=== PATIENT | male | born 1945 | race Caucasian/White ===

== ENCOUNTER 2023-05-30 11:13 | Emergency (ER) | payer MEDICARE, OTHER, SELFPAY ==
[2023-05-30] VITALS (9 sets, daily range): BP systolic 102–152; BP diastolic 51–71; PULSE 56–65; RESP 12–30; TEMP 36.6; O2SAT 97–100; BMI 21.2
--- NOTE | 2023-05-30 11:28 | DI.RAD.S_ITS ---
PROCEDURE: XR CHEST 1V INDICATIONS: chest pain TECHNIQUE: One view of the chest was acquired. COMPARISON: None. FINDINGS: Surgical changes and devices: None. Lungs and pleura: No consolidation or pleural effusion. Mediastinum: Aortic calcifications. Normal heart size. Bones and chest wall: Degenerative changes. IMPRESSION: Single view limited radiograph. No acute abnormality. Dictated by: Karsten Smith M.D. on 05/30/2023 at 12:22 Approved by: Karsten Smith M.D. on 05/30/2023 at 12:23
[2023-05-30 11:34] LABS: Add Manual Diff / Slide Review NO; Basophils Absolute Auto 100 /uL (0-100); Basophils Percent Auto 0.6 % (0-2); Eosinophils Absolute Auto 100 /uL (0-450); Eosinophils Percent Auto 0.8 % (2-4); Hematocrit 36.8 % (41-53); Lymphocytes Absolute Auto 1700 /uL (1100-4500); Lymphocytes Percent Auto 20.3 % (25-40); Mean Corpuscular HGB Conc 32.7 % (30-36); Mean Corpuscular Volume 91.6 fL (80-100); Monocytes Absolute Auto 500 /uL (0-900); Neutrophils Absolute Auto 5900 /uL (1500-7000); Neutrophils Percent Auto 72.3 % (50-75); Platelet Count 291 X10^3/uL (150-400); Red Blood Cell Count 4.01 X10^6/uL (4.5-5.9); Red Cell Distribution Width 15.2 % (11.6-14.8); White Blood Cell Count 8.1 X10^3/uL (4.5-11.0)
[2023-05-30 11:36] LABS: INR 0.9 (0.9-1.3); Prothrombin Time 10.8 SECONDS (9.4-12.5)
[2023-05-30 11:38] LABS: PTT Partial Thromboplastin Tim 30 SECONDS (25.1-36.5)
[2023-05-30 11:40] LABS: Alanine Aminotransferase 28 IU/L (<50); Albumin 3.8 g/dL (3.5-5.0); Albumin Globulin Ratio 1.4 (1.0-2.8); Alkaline Phosphatase 76 U/L (38-126); Aspartate Aminotransferase 26 IU/L (17-59); BUN Creatinine Ratio 24.6 (6-22); Bilirubin Total 0.5 mg/dL (0.2-1.3); Blood Urea Nitrogen 34 mg/dL (9-20); Calcium 9.7 mg/dL (8.4-10.2); Carbon Dioxide 25 mmol/L (22-32); Chloride 99 mmol/L (98-107); Creatine Kinase 53 U/L (55-170); Estimated Glomerular Filt Rate 53 mL/min (>60); Globulin 2.8 g/dL (1.7-4.1); Glucose 220 mg/dL (80-110); HEMOLYSIS < 15 (0-50); Lipase 78 U/L (23-300); Magnesium 2.1 mg/dL (1.6-2.3); Potassium 4.6 mmol/L (3.4-5.1); Sodium 133 mmol/L (137-145); Total Protein 6.6 g/dL (6.3-8.2)
[2023-05-30 11:52] LABS: Troponin I < 0.012 ng/mL (0.01-0.034)
--- NOTE | 2023-05-30 12:33 | ED.GENADULT ---
HPI - General Adult General Chief complaint: Syncope Stated complaint: syncope/fall baseline confused Time Seen by Provider: 05/30/23 11:28 Source: patient and EMS Mode of arrival: EMS History of Present Illness HPI narrative: Patient is a 78-year-old male. Does have some cognitive issues/dementia. Not on blood thinners. Was here for evaluation of a syncope/presyncopal episode. He was at his normal state of health. He was with his family. They were to wearing a local nursing facility when patient's daughter who was at bedside thinks that he got somewhat hot. He stated that he felt like he was going to pass out. He potentially had a short episode of loss of consciousness. He did not fall. His family did help him to the ground. No loss of bowel or bladder. Returned to baseline fairly quickly after the event. Patient is unable to provide much history as far as prodromal symptoms given his cognitive issues however here in the emergency department he states he has no particular symptoms. Related Data Allergies Allergy/AdvReac Type Severity Reaction Status Date / Time No Known Drug Allergies Allergy Verified 05/30/23 11:23 Review of Systems Review of Systems Narrative: See HPI however somewhat limited secondary to patient's dementia Patient History Social History Smoking Status: Never smoker Smoking Status: Never smoker alcohol intake frequency: 0-2 drinks per day Substance Use Type: does not use Exam Initial Vital Signs Initial Vital Signs: Vital Signs Temperature 98 F 05/30/23 11:10 Pulse Rate 65 05/30/23 11:10 Respiratory Rate 20 05/30/23 11:10 Blood Pressure 106/56 L 05/30/23 11:10 Pulse Oximetry 97 05/30/23 11:10 Oxygen Delivery Method Room Air 05/30/23 11:10 Const General: cooperative, comfortable and No ill appearing HENMT Head: normal to inspection and normocephalic Resp Effort & Inspection: normal respiratory effort Auscultation: clear to auscultation bilaterally Cardio Rate: regular rate Rhythm: regular rhythm Skin General: no rashes or lesions noted Neuro Other: Patient is confused. Does not know why he is here. Moves all 4 extremities. At baseline per daughter who is at bedside Extrem Other: No gross deformities Course Orders Ordered: ED Orders 05/30/23 11:16 Complete Blood Count AUTO DIFF Stat Comprehensive Metabolic Panel Stat Lipase Stat Magnesium Stat PTT Partial Thromboplastin Franky Stat Prothrombin Time INR Stat Troponin & CK Cardiac Panel Stat 05/30/23 11:27 EKG-12 Lead Stat 05/30/23 11:28 XR chest 1V Stat Vital Signs Vital signs: Vital Signs - 8 hr 05/30/23 11:10 05/30/23 11:27 05/30/23 11:30 Temperature 98 F Pulse Rate 65 61 Respiratory Rate 20 13 Blood Pressure 106/56 L 102/51 L Pulse Oximetry 97 100 Oxygen Delivery Method Room Air 05/30/23 11:30 05/30/23 12:00 05/30/23 12:00 Temperature Pulse Rate 60 57 L Respiratory Rate 12 14 Blood Pressure 102/57 L Pulse Oximetry 100 100 Oxygen Delivery Method Medical Decision Making Lab Data Lab results reviewed: Yes I reviewed the patient's lab results. 05/30/23 11:16 05/30/23 11:16 Labs: Lab Results 05/30/23 Range/Units 11:16 WBC 8.1 (4.5-11.0) X10^3/uL RBC 4.01 L (4.5-5.9) X10^6/uL Hgb 12.0 L (13.5-17.5) g/dL Hct 36.8 L (41-53) % MCV 91.6 (80-100) fL MCH 30.0 (26-34) PG MCHC 32.7 (30-36) % RDW 15.2 H (11.6-14.8) % Plt Count 291 (150-400) X10^3/uL Neut % (Auto) 72.3 (50-75) % Lymph % (Auto) 20.3 L (25-40) % [place] % (Auto) 6.0 (3-14) % Eos % (Auto) 0.8 L (2-4) % Baso % (Auto) 0.6 (0-2) % Neut # (Auto) 5900 (5358-3299) /uL Lymph # (Auto) 1700 (5183-4151) /uL [place] # (Auto) 500 (0-900) /uL Eos # (Auto) 100 (0-450) /uL Baso # (Auto) 100 (0-100) /uL PT 10.8 (9.4-12.5) SECONDS INR 0.9 (0.9-1.3) APTT 30 (25.1-36.5) SECONDS Sodium 133 L (137-145) mmol/L Potassium 4.6 (3.4-5.1) mmol/L Chloride 99 (98-107) mmol/L Carbon Dioxide 25 (22-32) mmol/L BUN 34 H (9-20) mg/dL Creatinine 1.38 H (0.66-1.25) mg/dL Estimated GFR 53 L (>60) mL/min BUN/Creatinine Ratio 24.6 H (6-22) Glucose 220 H (80-110) mg/dL Calcium 9.7 (8.4-10.2) mg/dL Magnesium 2.1 (1.6-2.3) mg/dL Total Bilirubin 0.5 (0.2-1.3) mg/dL AST 26 (17-59) IU/L ALT 28 (<50) IU/L Alkaline Phosphatase 76 (38-126) U/L Total Creatine Kinase 53 L (55-170) U/L Troponin I < 0.012 (0.01-0.034) ng/mL Total Protein 6.6 (6.3-8.2) g/dL Albumin 3.8 (3.5-5.0) g/dL Globulin 2.8 (1.7-4.1) g/dL Albumin/Globulin Ratio 1.4 (1.0-2.8) Lipase 78 (23-300) U/L Point of Care Testing Glucose POC 217 Point of care testing: Point of Care Testing Glucose POC 217 Imaging Data Chest x-ray: Radiologist's Impression: PROCEDURE: XR CHEST 1V INDICATIONS: chest pain TECHNIQUE: One view of the chest was acquired. COMPARISON: None. FINDINGS: Surgical changes and devices: None. Lungs and pleura: No consolidation or pleural effusion. Mediastinum: Aortic calcifications. Normal heart size. Bones and chest wall: Degenerative changes. IMPRESSION: Single view limited radiograph. No acute abnormality. ECG Data Attestation: I personally reviewed and interpreted this ECG as follows: Interpretation: Sinus rhythm Ventricular rate is 62 Left axis deviation Normal QRS No ST T wave changes MDM Narrative Medical decision making narrative: Labs are unremarkable. Patient ambulated around the emergency department without lightheadedness. He has no specific complaints. Chest x-ray is unremarkable. EKG is unremarkable. Will discharge patient home. No indication to change any medications. No indication for admission to the hospital. They were given return precautions. Daughter expressed understanding and agreement. Discharge Plan Departure Patient Disposition: Home Clinical Impression: Syncope Instructions: DI for Syncope in Adults (Fainting) Activity Restrictions/Additional Instructions: Recommend that Karsten continue to take all of his medications as directed. It is important that he establish care with a primary doctor here in the local area. If you need help with this you can contact [phone]. Return to emergency department for new or worsening symptoms. Referrals: Paul Walker DO [Primary Care Provider] - Stand Alone Forms: Patient Portal/API
== END 2023-05-30 13:29 | disposition home or self-care (01) ==
PROVIDERS: Emergency Provider Emergency Medicine; PCP Family Medicine
DX: R55 Syncope and collapse (principal); R07.9 Chest pain, unspecified; R41.0 Disorientation, unspecified
CPT/HCPCS: 36415; 71045; 80053; 81003; 82550; 83690; 83735; 84484; 85025; 85610; 85730; 93005; 99283; 99284

== ENCOUNTER → 2023-06-11 14:00 | Outpatient (CLI) | payer MEDICARE, OTHER, SELFPAY | PROVIDERS: PCP Family Medicine; Referring Provider Family Medicine; Visit Provider Surgery | DX: E11.621 Type 2 diabetes mellitus with foot ulcer (principal); L97.519 Non-pressure chronic ulcer of other part of right foot with unspecified severity; L97.529 Non-pressure chronic ulcer of other part of left foot with unspecified severity; D64.9 Anemia, unspecified; L97.512 Non-pressure chronic ulcer of other part of right foot with fat layer exposed; L97.522 Non-pressure chronic ulcer of other part of left foot with fat layer exposed; E11.42 Type 2 diabetes mellitus with diabetic polyneuropathy; L84 Corns and callosities; R60.0 Localized edema; L53.9 Erythematous condition, unspecified; I10 Essential (primary) hypertension; F03.90 Unspecified dementia, unspecified severity, without behavioral disturbance, psychotic disturbance, mood disturbance, and anxiety | CPT/HCPCS: 11042; 73630; 80053; 82607; 83036; 83540; 83550; 87070; 87075; 87077; 87186; 87205; 99203; 99214 ==

== ENCOUNTER → 2023-06-11 16:38 | Outpatient (CLI) | payer MEDICARE, OTHER, SELFPAY ==
--- NOTE | 2023-06-11 16:40 | DI.RAD.S_ITS ---
PROCEDURE: XR FOOT LT MIN 3V INDICATIONS: non-healing ulcer on left third toe TECHNIQUE: 3 views of the foot were acquired. COMPARISON: None. FINDINGS: Bones: No fractures or dislocations. No suspicious bony lesions. Scattered IP degenerative narrowing. Old 2nd metatarsal fracture. Calcaneal spur is present. Midfoot degenerative change. Soft tissues: No tibiotalar joint effusion. Achilles tendon appears normal. IMPRESSION: No visualized erosions. Dictated by: Laurence Moya M.D. on 06/12/2023 at 13:57 Approved by: Laurence Moya M.D. on 06/12/2023 at 13:58
--- NOTE | 2023-06-11 16:40 | DI.RAD.S_ITS ---
PROCEDURE: XR FOOT RT MIN 3V INDICATIONS: non-healing ulcer on right great toe TECHNIQUE: 3 views of the foot were acquired. COMPARISON: None. FINDINGS: Bones: No fractures or dislocations. No suspicious bony lesions. IP degenerative narrowing. No distinct erosions. Soft tissues: No tibiotalar joint effusion. Achilles tendon appears normal. Soft tissue ulcer is noted underlying the 1st digit. IMPRESSION: 1st digit soft tissue ulcer without definitive erosive change. Dictated by: Laurence Moya M.D. on 06/12/2023 at 13:58 Approved by: Laurence Moya M.D. on 06/12/2023 at 14:00
[2023-06-11 18:26] LABS: HEMOLYSIS < 15 (0-50); Iron 21 ug/dL (49-181)
[2023-06-11 18:35] LABS: Alanine Aminotransferase 301 IU/L (<50); Albumin 3.3 g/dL (3.5-5.0); Albumin Globulin Ratio 1.1 (1.0-2.8); Alkaline Phosphatase 208 U/L (38-126); Aspartate Aminotransferase 99 IU/L (17-59); BUN Creatinine Ratio 31.3 (6-22); Bilirubin Total 0.8 mg/dL (0.2-1.3); Blood Urea Nitrogen 31 mg/dL (9-20); Calcium 9.2 mg/dL (8.4-10.2); Carbon Dioxide 25 mmol/L (22-32); Chloride 95 mmol/L (98-107); Estimated Glomerular Filt Rate > 60 mL/min (>60); Glucose 196 mg/dL (80-110); HEMOLYSIS < 15 (0-50); Sodium 129 mmol/L (137-145); Total Protein 6.3 g/dL (6.3-8.2)
[2023-06-11 18:38] LABS: Percent Iron Saturation 8 % (20-50); Total Iron Binding Capacity 265 ug/dL (261-462); Transferrin 216 mg/dL (206-381)
[2023-06-11 19:23] LABS: Vitamin B12 756 pg/mL (239-931)
== END ==
PROVIDERS: PCP Family Medicine; Referring Provider Surgery; Visit Provider Surgery
DX: E11.621 Type 2 diabetes mellitus with foot ulcer (principal); L97.519 Non-pressure chronic ulcer of other part of right foot with unspecified severity; L97.529 Non-pressure chronic ulcer of other part of left foot with unspecified severity; D64.9 Anemia, unspecified; L97.512 Non-pressure chronic ulcer of other part of right foot with fat layer exposed; L97.522 Non-pressure chronic ulcer of other part of left foot with fat layer exposed; E11.42 Type 2 diabetes mellitus with diabetic polyneuropathy; L84 Corns and callosities; R60.0 Localized edema; L53.9 Erythematous condition, unspecified; I10 Essential (primary) hypertension; F03.90 Unspecified dementia, unspecified severity, without behavioral disturbance, psychotic disturbance, mood disturbance, and anxiety
CPT/HCPCS: 73630; 80053; 82607; 83036; 83540; 83550; 87070; 87075; 87205

== ENCOUNTER → 2023-06-18 11:02 | Outpatient (CLI) | payer MEDICARE, OTHER, SELFPAY ==
--- NOTE | 2023-06-18 11:06 | DI.CT.S_ITS ---
PROCEDURE: CT HEAD/BRAIN WO CON INDICATIONS: eval dementia/memory loss TECHNIQUE: Noncontrast 4.5 mm thick angled axial sections acquired from the foramen magnum to the vertex, with coronal and sagittal reformats. For radiation dose reduction, the following was used: automated exposure control, adjustment of mA and/or kV according to patient size. COMPARISON: None. FINDINGS: Image quality: Diagnostic. CSF spaces: Basal cisterns are patent. No extra-axial fluid collections. The ventricles are symmetric in size and shape. Brain: No intracranial bleeds or masses. There is cerebral volume loss for age, with resultant ventricular and sulcal prominence. There are periventricular and deep white matter chronic small vessel ischemic changes. There is intracranial internal carotid artery atherosclerosis. Skull and face: Calvarium and visualized facial bones appear intact, without suspicious lesions. Sinuses: Visualized sinuses and mastoids are clear. IMPRESSION: Noncontrast head CT within normal limits for age, with generalized brain parenchymal volume loss. Dictated by: Matheus Chua M.D. on 06/18/2023 at 11:10 Approved by: Matheus Chua M.D. on 06/18/2023 at 11:11
--- NOTE | 2023-06-18 11:06 | DI.CT.S_ITS ---
PROCEDURE: CT LUNG LOW DOSE SCREENING INDICATIONS: history of nicotine dependence TECHNIQUE: Noncontrast 2.0-2.5 mm thick sections acquired from the pulmonary apices to the posterior costophrenic angles. 7 mm thick axial MIP, and 5 mm coronal and sagittal reformats were then acquired. For radiation dose reduction, the following was used: automated exposure control, adjustment of mA and/or kV according to patient size. COMPARISON: None. FINDINGS: Image quality: Diagnostic. Lower Neck: No enlarged lymph nodes. Thyroid: No thyroid nodules which require sonographic follow up, per consensus guidelines. Axillae: No enlarged lymph nodes. Chest Wall: Unremarkable. Bones: Unremarkable. Lungs and Pleura: No pneumothorax or pleural effusions. Scattered pulmonary nodules, for example; - 4-5 millimeter right lower lobe nodule (3/129, MIP image 114) -3 millimeter right lower lobe nodule (3/299, MIP image 150) Heart: Heart size is normal. No pericardial effusion. Severe coronary artery calcifications. Thoracic Vessels: The aorta and pulmonary arteries demonstrate normal size. Mediastinum and Adelita: No enlarged lymph nodes. Esophagus: No wall thickening. No hiatal hernia. Upper Abdomen: Visualized upper abdomen solid organs and bowel loops appear normal. IMPRESSION: Scattered sub 6 millimeter pulmonary nodules. LUNG-RADS 2; continued annual screening, if eligible. Clinically Significant Non-pulmonary Findings: Moderate to severe coronary artery calcifications. Consider cardiology referral. Approved by: Gabi Belcher M.D. on 06/18/2023 at 11:44
[2023-06-18 19:17] LABS: Appearance Urine UA CLEAR; Bilirubin Urine UA NEGATIVE (NEGATIVE); Color Urine UA YELLOW; Glucose Urine UA NEGATIVE (Negative); Ketones Urine UA TRACE (NEGATIVE); Leukocyte Esterase Urine UA NEGATIVE (NEGATIVE); Nitrite Urine UA NEGATIVE (Negative); Occult Blood Urine UA NEGATIVE (Negative); Protein Urine UA NEGATIVE (Negative)
[2023-06-18 19:27] LABS: Bacteria Urine Occasional (0-1); Culture Indicated Urine Cult Not Indicated; Mucus Urine 1+ (Negative); RBC Urine 0-1/HPF (0-5/HPF); Squamous Epithelial Cell Urine 1-5 /HPF (0-5/HPF); Urine Volume 10mL (spun); WBC Urine 0-1/HPF (0-5/HPF)
== END ==
PROVIDERS: PCP Family Medicine; Referring Provider Nurse Practitioner Family; Visit Provider Family Medicine
DX: F03.90 Unspecified dementia, unspecified severity, without behavioral disturbance, psychotic disturbance, mood disturbance, and anxiety (principal); Z12.2 Encounter for screening for malignant neoplasm of respiratory organs; R41.3 Other amnesia; F17.210 Nicotine dependence, cigarettes, uncomplicated; R91.8 Other nonspecific abnormal finding of lung field; I25.10 Atherosclerotic heart disease of native coronary artery without angina pectoris; R10.2 Pelvic and perineal pain; E11.621 Type 2 diabetes mellitus with foot ulcer; L97.512 Non-pressure chronic ulcer of other part of right foot with fat layer exposed; L97.522 Non-pressure chronic ulcer of other part of left foot with fat layer exposed; E11.42 Type 2 diabetes mellitus with diabetic polyneuropathy; L84 Corns and callosities; R26.81 Unsteadiness on feet
CPT/HCPCS: 11042; 70450; 71271; 81001

== ENCOUNTER → 2023-06-18 15:05 | Outpatient (CLI) | payer MEDICARE, OTHER, SELFPAY | PROVIDERS: PCP Family Medicine; Referring Provider Family Medicine; Visit Provider Surgery | DX: E11.621 Type 2 diabetes mellitus with foot ulcer (principal); L97.512 Non-pressure chronic ulcer of other part of right foot with fat layer exposed; L97.522 Non-pressure chronic ulcer of other part of left foot with fat layer exposed; E11.42 Type 2 diabetes mellitus with diabetic polyneuropathy; L84 Corns and callosities; R26.81 Unsteadiness on feet | CPT/HCPCS: 11042 ==

== ENCOUNTER → 2023-06-25 10:17 | Outpatient (CLI) | payer MEDICARE, OTHER, SELFPAY | LOC: WC 10:19 | PROVIDERS: PCP Family Medicine; Referring Provider Family Medicine; Visit Provider Surgery | DX: L97.512 Non-pressure chronic ulcer of other part of right foot with fat layer exposed (principal); L97.522 Non-pressure chronic ulcer of other part of left foot with fat layer exposed; E11.621 Type 2 diabetes mellitus with foot ulcer; E11.42 Type 2 diabetes mellitus with diabetic polyneuropathy; L84 Corns and callosities; R60.0 Localized edema; L53.9 Erythematous condition, unspecified | CPT/HCPCS: 11042 ==

== ENCOUNTER → 2023-07-01 15:41 | Outpatient (CLI) | payer MEDICARE, OTHER, SELFPAY | LOC: WC 15:42 | PROVIDERS: PCP Family Medicine; Referring Provider Family Medicine; Visit Provider Nurse Practitioner Family | DX: E11.621 Type 2 diabetes mellitus with foot ulcer (principal); L97.512 Non-pressure chronic ulcer of other part of right foot with fat layer exposed; L97.522 Non-pressure chronic ulcer of other part of left foot with fat layer exposed; E11.42 Type 2 diabetes mellitus with diabetic polyneuropathy; L84 Corns and callosities; R60.0 Localized edema; L53.9 Erythematous condition, unspecified; I10 Essential (primary) hypertension | CPT/HCPCS: 11042; 97597; 99214 ==

== ENCOUNTER → 2023-07-09 09:49 | Outpatient (CLI) | payer MEDICARE, OTHER, SELFPAY ==
[2023-07-09 11:25] LABS: Alanine Aminotransferase 55 IU/L (<50); Albumin 3.4 g/dL (3.5-5.0); Albumin Globulin Ratio 1.3 (1.0-2.8); Alkaline Phosphatase 105 U/L (38-126); Aspartate Aminotransferase 34 IU/L (17-59); BUN Creatinine Ratio 38.7 (6-22); Bilirubin Total 0.4 mg/dL (0.2-1.3); Blood Urea Nitrogen 36 mg/dL (9-20); Calcium 9.7 mg/dL (8.4-10.2); Carbon Dioxide 31 mmol/L (22-32); Chloride 106 mmol/L (98-107); Estimated Glomerular Filt Rate > 60 mL/min (>60); Globulin 2.7 g/dL (1.7-4.1); Glucose 145 mg/dL (80-110); HEMOLYSIS < 15 (0-50); Potassium 4.8 mmol/L (3.4-5.1); Sodium 139 mmol/L (137-145); Total Protein 6.1 g/dL (6.3-8.2)
== END ==
PROVIDERS: Nurse Practitioner Family; PCP Family Medicine; Referring Provider Family Medicine; Visit Provider Family Medicine
DX: E11.9 Type 2 diabetes mellitus without complications (principal); R74.8 Abnormal levels of other serum enzymes
CPT/HCPCS: 36415; 80053; 83036

== ENCOUNTER → 2023-07-09 11:34 | Outpatient (CLI) | payer MEDICARE, OTHER, SELFPAY | PROVIDERS: PCP Family Medicine; Referring Provider Family Medicine; Visit Provider Surgery | DX: E11.621 Type 2 diabetes mellitus with foot ulcer (principal); L97.512 Non-pressure chronic ulcer of other part of right foot with fat layer exposed; L97.522 Non-pressure chronic ulcer of other part of left foot with fat layer exposed; E11.42 Type 2 diabetes mellitus with diabetic polyneuropathy; L84 Corns and callosities; L53.9 Erythematous condition, unspecified; R60.0 Localized edema; F03.90 Unspecified dementia, unspecified severity, without behavioral disturbance, psychotic disturbance, mood disturbance, and anxiety; E11.9 Type 2 diabetes mellitus without complications; R74.8 Abnormal levels of other serum enzymes | CPT/HCPCS: 11042; 36415; 80053; 83036; 87070; 87075; 87077; 87186; 87205; 99213 ==

== ENCOUNTER → 2023-07-16 14:38 | Outpatient (CLI) | payer MEDICARE, OTHER, SELFPAY | PROVIDERS: PCP Family Medicine; Referring Provider Family Medicine; Visit Provider Surgery | DX: L97.512 Non-pressure chronic ulcer of other part of right foot with fat layer exposed (principal); E11.621 Type 2 diabetes mellitus with foot ulcer; E11.42 Type 2 diabetes mellitus with diabetic polyneuropathy; L84 Corns and callosities; L53.9 Erythematous condition, unspecified; Z79.2 Long term (current) use of antibiotics; I10 Essential (primary) hypertension; F03.90 Unspecified dementia, unspecified severity, without behavioral disturbance, psychotic disturbance, mood disturbance, and anxiety | CPT/HCPCS: 11042; 99213 ==

== ENCOUNTER → 2023-07-30 13:55 | Outpatient (CLI) | payer MEDICARE, OTHER, SELFPAY | LOC: WC 13:56 | PROVIDERS: PCP Family Medicine; Referring Provider Family Medicine; Visit Provider Surgery | DX: L97.512 Non-pressure chronic ulcer of other part of right foot with fat layer exposed (principal); E11.621 Type 2 diabetes mellitus with foot ulcer; E11.42 Type 2 diabetes mellitus with diabetic polyneuropathy; L84 Corns and callosities; R60.0 Localized edema; I10 Essential (primary) hypertension; Z87.891 Personal history of nicotine dependence; F03.90 Unspecified dementia, unspecified severity, without behavioral disturbance, psychotic disturbance, mood disturbance, and anxiety | CPT/HCPCS: 11042 ==

== ENCOUNTER → 2023-08-05 15:02 | Outpatient (CLI) | payer MEDICARE, OTHER, SELFPAY | LOC: WC 15:02 | PROVIDERS: PCP Family Medicine; Referring Provider Family Medicine; Visit Provider Surgery | DX: E11.621 Type 2 diabetes mellitus with foot ulcer (principal); L97.512 Non-pressure chronic ulcer of other part of right foot with fat layer exposed; E11.42 Type 2 diabetes mellitus with diabetic polyneuropathy; L84 Corns and callosities; R60.0 Localized edema; L53.9 Erythematous condition, unspecified; L08.89 Other specified local infections of the skin and subcutaneous tissue; Z79.2 Long term (current) use of antibiotics; F03.90 Unspecified dementia, unspecified severity, without behavioral disturbance, psychotic disturbance, mood disturbance, and anxiety; I10 Essential (primary) hypertension | CPT/HCPCS: 11042; 99213 ==

== ENCOUNTER → 2023-08-12 10:07 | Outpatient (CLI) | payer MEDICARE, OTHER, SELFPAY | LOC: WC 10:10 | PROVIDERS: PCP Family Medicine; Referring Provider Family Medicine; Visit Provider Surgery | DX: E11.621 Type 2 diabetes mellitus with foot ulcer (principal); E11.42 Type 2 diabetes mellitus with diabetic polyneuropathy; L97.512 Non-pressure chronic ulcer of other part of right foot with fat layer exposed; L84 Corns and callosities; R60.0 Localized edema; L53.9 Erythematous condition, unspecified; R23.4 Changes in skin texture; F03.90 Unspecified dementia, unspecified severity, without behavioral disturbance, psychotic disturbance, mood disturbance, and anxiety | CPT/HCPCS: 11042 ==

== ENCOUNTER → 2023-08-19 14:06 | Outpatient (CLI) | payer MEDICARE, OTHER, SELFPAY | LOC: WC 14:08 | PROVIDERS: PCP Family Medicine; Referring Provider Family Medicine; Visit Provider Surgery | DX: E11.621 Type 2 diabetes mellitus with foot ulcer (principal); E11.42 Type 2 diabetes mellitus with diabetic polyneuropathy; L97.512 Non-pressure chronic ulcer of other part of right foot with fat layer exposed; R60.0 Localized edema; L84 Corns and callosities; L53.9 Erythematous condition, unspecified; I10 Essential (primary) hypertension; F03.90 Unspecified dementia, unspecified severity, without behavioral disturbance, psychotic disturbance, mood disturbance, and anxiety | CPT/HCPCS: 15275; Q4196 ==

== ENCOUNTER → 2023-08-26 11:14 | Outpatient (CLI) | payer MEDICARE, OTHER, SELFPAY | LOC: WC 11:14 | PROVIDERS: PCP Family Medicine; Referring Provider Family Medicine; Visit Provider Surgery | DX: E11.621 Type 2 diabetes mellitus with foot ulcer (principal); L97.512 Non-pressure chronic ulcer of other part of right foot with fat layer exposed; L84 Corns and callosities; R60.0 Localized edema; L53.9 Erythematous condition, unspecified; I10 Essential (primary) hypertension; F03.90 Unspecified dementia, unspecified severity, without behavioral disturbance, psychotic disturbance, mood disturbance, and anxiety | CPT/HCPCS: 15275; Q4196 ==

== ENCOUNTER → 2023-09-02 10:56 | Outpatient (CLI) | payer MEDICARE, OTHER, SELFPAY | LOC: WC 10:58 | PROVIDERS: PCP Family Medicine; Referring Provider Family Medicine; Visit Provider Surgery | DX: E11.621 Type 2 diabetes mellitus with foot ulcer (principal); E11.42 Type 2 diabetes mellitus with diabetic polyneuropathy; L97.512 Non-pressure chronic ulcer of other part of right foot with fat layer exposed; L84 Corns and callosities; R23.4 Changes in skin texture; I10 Essential (primary) hypertension; F03.90 Unspecified dementia, unspecified severity, without behavioral disturbance, psychotic disturbance, mood disturbance, and anxiety | CPT/HCPCS: 11042 ==

== ENCOUNTER → 2023-09-09 13:17 | Outpatient (CLI) | payer MEDICARE, OTHER, SELFPAY | LOC: WC 13:17 | PROVIDERS: PCP Family Medicine; Referring Provider Family Medicine; Visit Provider Surgery | DX: E11.621 Type 2 diabetes mellitus with foot ulcer (principal); L97.512 Non-pressure chronic ulcer of other part of right foot with fat layer exposed; E11.42 Type 2 diabetes mellitus with diabetic polyneuropathy; L84 Corns and callosities; R23.4 Changes in skin texture; F03.90 Unspecified dementia, unspecified severity, without behavioral disturbance, psychotic disturbance, mood disturbance, and anxiety; I10 Essential (primary) hypertension | CPT/HCPCS: 11042; 99213 ==

== ENCOUNTER → 2023-09-16 15:35 | Outpatient (CLI) | payer MEDICARE, OTHER, SELFPAY | LOC: WC 15:36 | PROVIDERS: PCP Family Medicine; Referring Provider Family Medicine; Visit Provider Surgery | DX: E11.42 Type 2 diabetes mellitus with diabetic polyneuropathy (principal); E11.628 Type 2 diabetes mellitus with other skin complications; L84 Corns and callosities; R23.4 Changes in skin texture | CPT/HCPCS: 99212; 99213 ==

== ENCOUNTER → 2023-09-23 14:49 | Outpatient (CLI) | payer MEDICARE, OTHER, SELFPAY | PROVIDERS: PCP Family Medicine; Referring Provider Family Medicine; Visit Provider Surgery | DX: Z09 Encounter for follow-up examination after completed treatment for conditions other than malignant neoplasm (principal); Z86.31 Personal history of diabetic foot ulcer | CPT/HCPCS: 99211; 99213 ==

== ENCOUNTER → 2023-10-22 10:20 | Outpatient (CLI) | payer MEDICARE, OTHER, SELFPAY | PROVIDERS: PCP Family Medicine; Referring Provider Family Medicine; Visit Provider Surgery | DX: E11.621 Type 2 diabetes mellitus with foot ulcer (principal); E11.42 Type 2 diabetes mellitus with diabetic polyneuropathy; L97.512 Non-pressure chronic ulcer of other part of right foot with fat layer exposed; L97.522 Non-pressure chronic ulcer of other part of left foot with fat layer exposed; L84 Corns and callosities; F03.90 Unspecified dementia, unspecified severity, without behavioral disturbance, psychotic disturbance, mood disturbance, and anxiety | CPT/HCPCS: 11042; 87070; 87075; 87205; 99213 ==

== ENCOUNTER → 2023-10-22 | Outpatient (CLI) | payer MEDICARE, OTHER, SELFPAY ==
--- NOTE | 2023-10-22 12:26 | DI.RAD.S_ITS ---
PROCEDURE: XR FOOT LT MIN 3V INDICATIONS: eval for osteo TECHNIQUE: 3 views of the foot were acquired. COMPARISON: [facility], CR, XR FOOT LT MIN 3V, 06/11/2023, 16:51. [facility], CR, XR FOOT RT MIN 3V, 06/11/2023, 16:51. FINDINGS: Bones: No acute fractures. Deformity of the 2nd metatarsal of remote, healed fracture. Severe degenerative joint space loss and subcortical cystic changes at the 1st and 2nd TMT joints. Moderate dorsal spur formation. Pes planus deformity and prominent plantar calcaneal spur. Degenerative changes at the tibiotalar joint. Soft tissues: No tibiotalar joint effusion. Achilles tendon appears normal. Mild calcification of the proximal plantar fascia. No radiodense foreign bodies or soft tissue gas. IMPRESSION: No radiographic evidence of osteomyelitis, however radiographs are insensitive in the early phase, and if there is further concern for osteomyelitis, MR imaging is recommended. Chronic midfoot degenerative changes and resultant pes planus deformity. Dictated by: Ansley Romo M.D. on 10/22/2023 at 21:16 Approved by: Ansley Romo M.D. on 10/22/2023 at 21:18
--- NOTE | 2023-10-22 12:26 | DI.RAD.S_ITS ---
PROCEDURE: XR FOOT RT MIN 3V INDICATIONS: eval for osteo TECHNIQUE: Three views of the foot were acquired. COMPARISON: [facility], CR, XR FOOT RT MIN 3V, 06/11/2023, 16:51. FINDINGS: Bones: No fractures or dislocations. No visible definite erosive changes or cortical loss. Scattered degenerative changes in the IP joints. Moderate plantar and dorsal calcaneal spurs. No suspicious bony lesions. Soft tissues: No tibiotalar joint effusion. Achilles tendon appears normal. No radiodense foreign bodies or soft tissue gas. IMPRESSION: No radiographic evidence of osteomyelitis, however radiographs are insensitive in the early phase, and if there is further concern for osteomyelitis, MR imaging is recommended. Dictated by: Ansley Romo M.D. on 10/22/2023 at 17:29 Approved by: Ansley Romo M.D. on 10/22/2023 at 17:33
== END ==
PROVIDERS: PCP Family Medicine; Referring Provider Surgery; Visit Provider Surgery
DX: E11.621 Type 2 diabetes mellitus with foot ulcer (principal); L97.529 Non-pressure chronic ulcer of other part of left foot with unspecified severity; L97.519 Non-pressure chronic ulcer of other part of right foot with unspecified severity; E11.42 Type 2 diabetes mellitus with diabetic polyneuropathy; L97.512 Non-pressure chronic ulcer of other part of right foot with fat layer exposed; L97.522 Non-pressure chronic ulcer of other part of left foot with fat layer exposed; L84 Corns and callosities; F03.90 Unspecified dementia, unspecified severity, without behavioral disturbance, psychotic disturbance, mood disturbance, and anxiety
CPT/HCPCS: 11042; 73630; 87070; 87205; 99213

== ENCOUNTER → 2023-10-27 10:26 | Outpatient (CLI) | payer MEDICARE, OTHER, SELFPAY | LOC: WC 10:28 | PROVIDERS: PCP Family Medicine; Referring Provider Family Medicine; Visit Provider Surgery | DX: E11.621 Type 2 diabetes mellitus with foot ulcer (principal); E11.42 Type 2 diabetes mellitus with diabetic polyneuropathy; L97.512 Non-pressure chronic ulcer of other part of right foot with fat layer exposed; L97.522 Non-pressure chronic ulcer of other part of left foot with fat layer exposed; L84 Corns and callosities; F03.90 Unspecified dementia, unspecified severity, without behavioral disturbance, psychotic disturbance, mood disturbance, and anxiety | CPT/HCPCS: 11042 ==

== ENCOUNTER → 2023-11-06 15:00 | Outpatient (CLI) | payer MEDICARE, OTHER, SELFPAY | PROVIDERS: PCP Family Medicine; Referring Provider Family Medicine; Visit Provider Physician Assistant | DX: L97.512 Non-pressure chronic ulcer of other part of right foot with fat layer exposed (principal); L97.812 Non-pressure chronic ulcer of other part of right lower leg with fat layer exposed; L97.522 Non-pressure chronic ulcer of other part of left foot with fat layer exposed; E11.621 Type 2 diabetes mellitus with foot ulcer; L84 Corns and callosities | CPT/HCPCS: 11042; 99213 ==

== ENCOUNTER → 2023-11-12 14:52 | Outpatient (CLI) | payer MEDICARE, OTHER, SELFPAY | PROVIDERS: PCP Family Medicine; Referring Provider Family Medicine; Visit Provider Surgery | DX: E11.621 Type 2 diabetes mellitus with foot ulcer (principal); E11.42 Type 2 diabetes mellitus with diabetic polyneuropathy; L97.512 Non-pressure chronic ulcer of other part of right foot with fat layer exposed; L97.522 Non-pressure chronic ulcer of other part of left foot with fat layer exposed; L84 Corns and callosities | CPT/HCPCS: 11042 ==

== ENCOUNTER → 2023-11-19 14:45 | Outpatient (CLI) | payer MEDICARE, OTHER, SELFPAY | LOC: WC 14:46 | PROVIDERS: PCP Family Medicine; Referring Provider Family Medicine; Visit Provider Nurse Practitioner Family | DX: E11.621 Type 2 diabetes mellitus with foot ulcer (principal); E11.42 Type 2 diabetes mellitus with diabetic polyneuropathy; L97.512 Non-pressure chronic ulcer of other part of right foot with fat layer exposed; L97.522 Non-pressure chronic ulcer of other part of left foot with fat layer exposed; L84 Corns and callosities | CPT/HCPCS: 11042 ==

== ENCOUNTER → 2023-11-26 15:09 | Outpatient (CLI) | payer MEDICARE, OTHER, SELFPAY | LOC: WC 15:11 | PROVIDERS: PCP Family Medicine; Referring Provider Family Medicine; Visit Provider Nurse Practitioner Family | DX: E11.621 Type 2 diabetes mellitus with foot ulcer (principal); E11.42 Type 2 diabetes mellitus with diabetic polyneuropathy; L97.512 Non-pressure chronic ulcer of other part of right foot with fat layer exposed; L84 Corns and callosities | CPT/HCPCS: 11042 ==

== ENCOUNTER → 2023-11-27 10:16 | Outpatient (CLI) | payer MEDICARE, OTHER, SELFPAY ==
--- NOTE | 2023-11-27 10:17 | DI.US.S_ITS ---
PROCEDURE: US ARTERIAL DUPLEX LE BI INDICATIONS: Non-healing wounds of bilateral feet. Elevated NELA. TECHNIQUE: Color and pulse Doppler interrogation was performed of both lower extremity arterial systems, with image documentation. COMPARISON: None. FINDINGS: Right lower extremity: Common femoral artery: 50 cm/sec, with triphasic flow. Deep femoral artery: 41 cm/sec, with biphasic flow. Proximal superficial femoral artery: 52 cm/sec, with triphasic flow. Mid superficial femoral artery: 64 cm/sec, with triphasic flow. Distal superficial femoral artery: 50 cm/sec, with triphasic flow. Popliteal artery: 52 cm/sec, with triphasic flow. Posterior tibial artery: 62 cm/sec, with triphasic flow. Anterior tibial artery/dorsalis pedis: 77 cm/sec, with triphasic flow. Foster-scale imaging description: Scattered atherosclerotic plaque Left lower extremity: Common femoral artery: 126 cm/sec, with triphasic flow. Deep femoral artery: 33 cm/sec, with triphasic flow. Proximal superficial femoral artery: 96 cm/sec, with triphasic flow. Mid superficial femoral artery: 68 cm/sec, with triphasic flow. Distal superficial femoral artery: 41 cm/sec, with biphasic flow. Popliteal artery: 60 cm/sec, with triphasic flow. Posterior tibial artery: 65 cm/sec, with triphasic flow. Anterior tibial artery/dorsalis pedis: 76 cm/sec, with triphasic flow. Foster-scale imaging description: Scattered atherosclerotic plaque IMPRESSION: Multiphasic waveforms of the bilateral lower extremity arterial vasculature with no velocity shift to suggest hemodynamically significant stenosis. Dictated by: Tez Alvarado M.D. on 11/27/2023 at 19:27 Approved by: Tez Alvarado M.D. on 11/27/2023 at 19:28
== END ==
PROVIDERS: PCP Family Medicine; Referring Provider Nurse Practitioner Family; Visit Provider Nurse Practitioner Family
DX: L97.512 Non-pressure chronic ulcer of other part of right foot with fat layer exposed (principal); L97.522 Non-pressure chronic ulcer of other part of left foot with fat layer exposed
CPT/HCPCS: 93925

== ENCOUNTER → 2023-12-03 15:42 | Outpatient (CLI) | payer MEDICARE, OTHER, SELFPAY | LOC: WC 15:48 | PROVIDERS: PCP Family Medicine; Referring Provider Family Medicine; Visit Provider Surgery | DX: E11.621 Type 2 diabetes mellitus with foot ulcer (principal); E11.42 Type 2 diabetes mellitus with diabetic polyneuropathy; L97.512 Non-pressure chronic ulcer of other part of right foot with fat layer exposed; L84 Corns and callosities; I10 Essential (primary) hypertension | CPT/HCPCS: 11042 ==

== ENCOUNTER → 2023-12-09 14:28 | Outpatient (CLI) | payer MEDICARE, OTHER, SELFPAY | PROVIDERS: PCP Family Medicine; Referring Provider Family Medicine; Visit Provider Surgery | DX: E11.621 Type 2 diabetes mellitus with foot ulcer (principal); L97.511 Non-pressure chronic ulcer of other part of right foot limited to breakdown of skin; E11.42 Type 2 diabetes mellitus with diabetic polyneuropathy; L84 Corns and callosities; F03.90 Unspecified dementia, unspecified severity, without behavioral disturbance, psychotic disturbance, mood disturbance, and anxiety | CPT/HCPCS: 99212; 99213 ==

== ENCOUNTER → 2023-12-14 15:57 | Outpatient (CLI) | payer MEDICARE, OTHER, SELFPAY ==
[2023-12-14 17:14] LABS: Add Manual Diff / Slide Review NO; Basophils Absolute Auto 100 /uL (0-100); Basophils Percent Auto 0.7 % (0-2); Eosinophils Absolute Auto 1000 /uL (0-450); Eosinophils Percent Auto 12.1 % (2-4); Hematocrit 34.2 % (41-53); Hemoglobin 11.9 g/dL (13.5-17.5); Lymphocytes Absolute Auto 1600 /uL (1100-4500); Lymphocytes Percent Auto 20.1 % (25-40); Mean Corpuscular HGB Conc 34.7 % (30-36); Mean Corpuscular Hemoglobin 33.2 PG (26-34); Mean Corpuscular Volume 95.8 fL (80-100); Monocytes Absolute Auto 600 /uL (0-900); Monocytes Percent Auto 7.3 % (3-14); Neutrophils Absolute Auto 4800 /uL (1500-7000); Neutrophils Percent Auto 59.8 % (50-75); Platelet Count 220 X10^3/uL (150-400); Red Blood Cell Count 3.57 X10^6/uL (4.5-5.9); Red Cell Distribution Width 15.9 % (11.6-14.8); White Blood Cell Count 8.1 X10^3/uL (4.5-11.0)
[2023-12-14 17:49] LABS: Alanine Aminotransferase 19 IU/L (<50); Albumin 3.8 g/dL (3.5-5.0); Albumin Globulin Ratio 1.7 (1.0-2.8); Alkaline Phosphatase 99 U/L (38-126); Aspartate Aminotransferase 24 IU/L (17-59); Bilirubin Total 0.3 mg/dL (0.2-1.3); Blood Urea Nitrogen 46 mg/dL (9-20); Calcium 9.1 mg/dL (8.4-10.2); Carbon Dioxide 26 mmol/L (22-32); Chloride 103 mmol/L (98-107); Cholesterol 137 mg/dL (140-199); Estimated Glomerular Filt Rate > 60 mL/min (>60); Globulin 2.3 g/dL (1.7-4.1); Glucose 157 mg/dL (80-110); HDL Cholesterol 49 mg/dL (40-60); HEMOLYSIS < 15 (0-50); LDL Cholesterol Calculated 12 mg/dL (<100); Potassium 4.7 mmol/L (3.4-5.1); Sodium 136 mmol/L (137-145); Total Protein 6.1 g/dL (6.3-8.2); Triglycerides 378 mg/dL (35-150)
[2023-12-14 18:16] LABS: Prostate Specific Antigen Scrn 1.71 ng/mL (0.1-4.0)
[2023-12-14 18:26] LABS: Hemoglobin A1C% w Est Avg Glu 7.6 % (4.0-6.0)
[2023-12-14 18:35] LABS: Vitamin B12 662 pg/mL (239-931)
== END ==
LOC: LAB 15:59
PROVIDERS: PCP Family Medicine; Referring Provider Family Medicine; Visit Provider Family Medicine
DX: E11.9 Type 2 diabetes mellitus without complications (principal); I10 Essential (primary) hypertension; Z12.5 Encounter for screening for malignant neoplasm of prostate; E78.5 Hyperlipidemia, unspecified
CPT/HCPCS: 36415; 80053; 80061; 82607; 83036; 85025; G0103

== ENCOUNTER → 2023-12-16 14:24 | Outpatient (CLI) | payer MEDICARE, OTHER, SELFPAY | LOC: WC 14:25 | PROVIDERS: PCP Family Medicine; Referring Provider Family Medicine; Visit Provider Surgery | DX: E11.628 Type 2 diabetes mellitus with other skin complications (principal); L84 Corns and callosities | CPT/HCPCS: 99213 ==

== ENCOUNTER → 2023-12-23 15:53 | Outpatient (CLI) | payer MEDICARE, OTHER, SELFPAY | PROVIDERS: PCP Family Medicine; Referring Provider Family Medicine; Visit Provider Surgery | DX: E11.628 Type 2 diabetes mellitus with other skin complications (principal); L84 Corns and callosities | CPT/HCPCS: 99212; 99213 ==

== ENCOUNTER → 2024-01-06 14:05 | Outpatient (CLI) | payer MEDICARE, OTHER, SELFPAY | LOC: WC 14:05 | PROVIDERS: PCP Family Medicine; Referring Provider Family Medicine; Visit Provider Surgery | DX: E11.621 Type 2 diabetes mellitus with foot ulcer (principal); E11.42 Type 2 diabetes mellitus with diabetic polyneuropathy; L97.512 Non-pressure chronic ulcer of other part of right foot with fat layer exposed; L84 Corns and callosities; R23.3 Spontaneous ecchymoses; I10 Essential (primary) hypertension; F03.90 Unspecified dementia, unspecified severity, without behavioral disturbance, psychotic disturbance, mood disturbance, and anxiety | CPT/HCPCS: 11042; 87070; 87075; 87077; 87147; 87186; 87205; 99213; 99214 ==

== ENCOUNTER → 2024-01-13 14:57 | Outpatient (CLI) | payer MEDICARE, OTHER, SELFPAY | LOC: WC 14:58 | PROVIDERS: PCP Family Medicine; Referring Provider Family Medicine; Visit Provider Surgery | DX: E11.621 Type 2 diabetes mellitus with foot ulcer (principal); E11.42 Type 2 diabetes mellitus with diabetic polyneuropathy; L97.512 Non-pressure chronic ulcer of other part of right foot with fat layer exposed; L84 Corns and callosities; R23.3 Spontaneous ecchymoses | CPT/HCPCS: 11042; 99213 ==

== ENCOUNTER → 2024-01-20 14:58 | Outpatient (CLI) | payer MEDICARE, OTHER, SELFPAY | PROVIDERS: PCP Family Medicine; Referring Provider Family Medicine; Visit Provider Surgery | DX: E11.621 Type 2 diabetes mellitus with foot ulcer (principal); E11.42 Type 2 diabetes mellitus with diabetic polyneuropathy; L97.512 Non-pressure chronic ulcer of other part of right foot with fat layer exposed; L84 Corns and callosities; R23.3 Spontaneous ecchymoses; R23.4 Changes in skin texture | CPT/HCPCS: 11042 ==

== ENCOUNTER → 2024-01-27 14:52 | Outpatient (CLI) | payer MEDICARE, OTHER, SELFPAY | PROVIDERS: PCP Family Medicine; Referring Provider Family Medicine; Visit Provider Surgery | DX: E11.621 Type 2 diabetes mellitus with foot ulcer (principal); E11.42 Type 2 diabetes mellitus with diabetic polyneuropathy; L97.512 Non-pressure chronic ulcer of other part of right foot with fat layer exposed; L97.522 Non-pressure chronic ulcer of other part of left foot with fat layer exposed; L84 Corns and callosities | CPT/HCPCS: 11042; 99213 ==

== ENCOUNTER → 2024-02-04 11:20 | Outpatient (CLI) | payer MEDICARE, OTHER, SELFPAY | LOC: WC 11:22 | PROVIDERS: PCP Family Medicine; Referring Provider Family Medicine; Visit Provider Surgery | DX: E11.42 Type 2 diabetes mellitus with diabetic polyneuropathy (principal); L84 Corns and callosities | CPT/HCPCS: 99213 ==

== ENCOUNTER → 2024-02-12 11:21 | Outpatient (CLI) | payer MEDICARE, OTHER, SELFPAY | LOC: WC 11:23 | PROVIDERS: PCP Family Medicine; Referring Provider Family Medicine; Visit Provider Physician Assistant | DX: Z09 Encounter for follow-up examination after completed treatment for conditions other than malignant neoplasm (principal); Z86.31 Personal history of diabetic foot ulcer | CPT/HCPCS: 99212 ==

== ENCOUNTER → 2024-04-13 10:25 | Outpatient (CLI) | payer MEDICARE, OTHER, SELFPAY | PROVIDERS: PCP Family Medicine; Referring Provider Podiatrist Foot & Ankle Surgery; Visit Provider Surgery | DX: E11.621 Type 2 diabetes mellitus with foot ulcer (principal); L97.512 Non-pressure chronic ulcer of other part of right foot with fat layer exposed; L97.522 Non-pressure chronic ulcer of other part of left foot with fat layer exposed; L84 Corns and callosities; E11.40 Type 2 diabetes mellitus with diabetic neuropathy, unspecified; I10 Essential (primary) hypertension; F03.90 Unspecified dementia, unspecified severity, without behavioral disturbance, psychotic disturbance, mood disturbance, and anxiety; Z87.891 Personal history of nicotine dependence | CPT/HCPCS: 11042; 87070; 87077; 87186; 87205; 99213; 99214 ==

== ENCOUNTER → 2024-04-15 14:08 | Outpatient (CLI) | payer MEDICARE, OTHER, SELFPAY ==
--- NOTE | 2024-04-15 14:10 | DI.RAD.S_ITS ---
PROCEDURE: XR FOOT RT MIN 3V INDICATIONS: eval for osteo TECHNIQUE: 3 views of the foot were acquired. COMPARISON: [facility], CR, XR FOOT LT MIN 3V, 10/22/2023, 12:28. [facility], CR, XR FOOT LT MIN 3V, 06/11/2023, 16:51. [facility], CR, XR FOOT RT MIN 3V, 10/22/2023, 12:28. FINDINGS: Bones: [id number] scattered degenerative changes, especially at the 1st MTP and midfoot. Similar talonavicular nonacute appearing bone fragment. Plantar calcaneal enthesopathy. More focal lucent appearance in the lateral metatarsals, particularly the 5th metatarsal head. Soft tissues: Soft tissue swelling, particular at the lateral aspect. IMPRESSION: [id number] scattered degenerative changes. Calcaneal enthesopathy. More focal lucencies at the lateral metatarsals, and soft tissue swelling, indeterminate on radiography for reactive edema versus early infection. Consider MRI to further evaluate for osteomyelitis if clinically indicated. Dictated by: Karsten Smith M.D. on 04/16/2024 at 20:26 Approved by: Karsten Smith M.D. on 04/16/2024 at 20:28
--- NOTE | 2024-04-15 14:10 | DI.RAD.S_ITS ---
1PROCEDURE: XR FOOT LT MIN 3V INDICATIONS: eval for osteo TECHNIQUE: 3 views of the foot were acquired. COMPARISON: [facility], CR, XR FOOT LT MIN 3V, 10/22/2023, 12:28. [facility], CR, XR FOOT LT MIN 3V, 06/11/2023, 16:51. FINDINGS: Bones: Chronic deformity of the 2nd metatarsal. Background moderate to severe degenerative changes, especially in the midfoot, with pes planus and midfoot collapse. Plantar enthesopathy. Periarticular lucencies are present, for example at the medial midfoot. Sclerotic appearance of the 5th metatarsal also similar to prior, possibly from prior injury. Soft tissues: Soft tissue swelling. IMPRESSION: Moderate to severe degenerative changes, especially in the midfoot, with arch collapse. Periarticular lucencies may represent sequelae of prior erosions versus degenerative geodes, particularly seen in the medial midfoot. Similar sclerosis of the 5th metatarsal, possibly from prior injury. Plantar enthesopathy. No definite acute changes by radiography. If there is high concern for further derangement, consider MRI evaluation. Dictated by: Karsten Smith M.D. on 04/16/2024 at 20:24 Approved by: Karsten Smith M.D. on 04/16/2024 at 20:26
== END ==
LOC: RAD 14:10
PROVIDERS: PCP Family Medicine; Referring Provider Surgery; Visit Provider Surgery
DX: E11.621 Type 2 diabetes mellitus with foot ulcer (principal); L97.529 Non-pressure chronic ulcer of other part of left foot with unspecified severity; L97.519 Non-pressure chronic ulcer of other part of right foot with unspecified severity; M77.31 Calcaneal spur, right foot; M79.89 Other specified soft tissue disorders
CPT/HCPCS: 73630

== ENCOUNTER → 2024-04-21 13:39 | Outpatient (CLI) | payer MEDICARE, OTHER, SELFPAY | PROVIDERS: PCP Family Medicine; Referring Provider Podiatrist Foot & Ankle Surgery; Visit Provider Physician Assistant | DX: E11.621 Type 2 diabetes mellitus with foot ulcer (principal); L97.512 Non-pressure chronic ulcer of other part of right foot with fat layer exposed; L98.8 Other specified disorders of the skin and subcutaneous tissue; L84 Corns and callosities | CPT/HCPCS: 11042; 99213; 99214 ==

== ENCOUNTER → 2024-04-21 14:17 | Outpatient (CLI) | payer MEDICARE, OTHER, SELFPAY ==
[2024-04-21 17:02] LABS: Hemoglobin A1C% w Est Avg Glu 7.5 % (4.0-6.0)
== END ==
PROVIDERS: Surgery; PCP Family Medicine; Referring Provider Physician Assistant; Visit Provider Physician Assistant
DX: E11.621 Type 2 diabetes mellitus with foot ulcer (principal)
CPT/HCPCS: 83036

== ENCOUNTER → 2024-04-21 14:21 | Outpatient (CLI) | payer MEDICARE, OTHER, SELFPAY ==
--- NOTE | 2024-04-21 16:28 | DI.MRI.S_ITS ---
PROCEDURE: MR FOOT RT WO/W CON INDICATIONS: Diabetic ulcer of R great toe. Medial and plantar surfaces. TECHNIQUE: Multiphasic, multisequence MRI of the forefoot was performed, before and after intravenous contrast administration. COMPARISON: [facility], CR, XR FOOT RT MIN 3V, 04/15/2024, 14:08. FINDINGS: Image quality: Excellent. Bones and joints: No significant signal abnormality is seen in the great toe or remaining osseous structures to suggest osteomyelitis. Mild to moderate multifocal degenerative changes in the midfoot and forefoot. No acute osseous fracture. Soft tissues: Skin ulceration is seen at the plantar aspect of the great toe with mild adjacent subcutaneous edema. No fluid collection is seen. Mild nonspecific edema at the dorsal aspect of the foot. There is diffuse fatty infiltration of the intrinsic foot musculature consistent with chronic denervation changes. No acute ligament or tendon tearing is seen. No enhancing soft tissue mass. IMPRESSION: 1. Skin ulceration at the plantar great toe with mild subcutaneous edema but no significant fluid collection. No MR evidence of osteomyelitis. 2. Fatty infiltration of the intrinsic foot musculature is consistent with chronic denervation changes. 3. Mpnh-es-mytpextx osteoarthrosis. Approved by: John Salgado M.D. on 04/21/2024 at 18:59
== END ==
PROVIDERS: PCP Family Medicine; Referring Provider Family Medicine; Visit Provider Physician Assistant
DX: L97.512 Non-pressure chronic ulcer of other part of right foot with fat layer exposed (principal); E11.621 Type 2 diabetes mellitus with foot ulcer; M19.071 Primary osteoarthritis, right ankle and foot; L98.8 Other specified disorders of the skin and subcutaneous tissue; L84 Corns and callosities
CPT/HCPCS: 11042; 73720; 83036; 99213; A9579

== ENCOUNTER → 2024-04-28 10:46 | Outpatient (CLI) | payer MEDICARE, OTHER, SELFPAY | PROVIDERS: PCP Family Medicine; Referring Provider Family Medicine; Visit Provider Surgery | DX: E11.42 Type 2 diabetes mellitus with diabetic polyneuropathy (principal); E11.621 Type 2 diabetes mellitus with foot ulcer; L97.512 Non-pressure chronic ulcer of other part of right foot with fat layer exposed; L98.8 Other specified disorders of the skin and subcutaneous tissue; L84 Corns and callosities; I10 Essential (primary) hypertension; F03.90 Unspecified dementia, unspecified severity, without behavioral disturbance, psychotic disturbance, mood disturbance, and anxiety | CPT/HCPCS: 11042 ==

== ENCOUNTER → 2024-05-06 15:12 | Outpatient (CLI) | payer MEDICARE, OTHER, SELFPAY | LOC: WC 15:16 | PROVIDERS: PCP Family Medicine; Referring Provider Podiatrist Foot & Ankle Surgery; Visit Provider Physician Assistant | DX: E11.628 Type 2 diabetes mellitus with other skin complications (principal); L84 Corns and callosities; R23.4 Changes in skin texture | CPT/HCPCS: 99212; 99213 ==

== ENCOUNTER → 2024-05-18 14:07 | Outpatient (CLI) | payer MEDICARE, OTHER, SELFPAY | PROVIDERS: PCP Family Medicine; Referring Provider Family Medicine; Visit Provider Surgery | DX: Z86.31 Personal history of diabetic foot ulcer (principal) | CPT/HCPCS: 99211; 99213 ==

== ENCOUNTER → 2024-06-13 09:34 | Outpatient (CLI) | payer MEDICARE, OTHER, SELFPAY ==
[2024-06-13 10:16] LABS: Hemoglobin A1C% w Est Avg Glu 7.2 % (4.0-6.0)
[2024-06-13 10:44] LABS: Alanine Aminotransferase 35 IU/L (<50); Albumin 4.1 g/dL (3.5-5.0); Albumin Globulin Ratio 1.8 (1.0-2.8); Alkaline Phosphatase 98 U/L (38-126); Aspartate Aminotransferase 33 IU/L (17-59); BUN Creatinine Ratio 30.5 (6-22); Bilirubin Total 0.4 mg/dL (0.2-1.3); Blood Urea Nitrogen 29 mg/dL (9-20); Calcium 9.9 mg/dL (8.4-10.2); Carbon Dioxide 30 mmol/L (22-32); Chloride 102 mmol/L (98-107); Estimated Glomerular Filt Rate > 60 mL/min (>60); Globulin 2.3 g/dL (1.7-4.1); Glucose 183 mg/dL (80-110); HEMOLYSIS < 15 (0-50); Potassium 4.7 mmol/L (3.4-5.1); Sodium 138 mmol/L (137-145); Total Protein 6.4 g/dL (6.3-8.2)
== END ==
PROVIDERS: PCP Family Medicine; Referring Provider Family Medicine; Visit Provider Family Medicine
DX: E11.59 Type 2 diabetes mellitus with other circulatory complications (principal); I10 Essential (primary) hypertension
CPT/HCPCS: 36415; 80053; 83036

== ENCOUNTER → 2024-08-10 14:08 | Outpatient (CLI) | payer MEDICARE, OTHER, SELFPAY | PROVIDERS: PCP Family Medicine; Referring Provider Podiatrist Foot & Ankle Surgery; Visit Provider Surgery | DX: E11.621 Type 2 diabetes mellitus with foot ulcer (principal); L97.512 Non-pressure chronic ulcer of other part of right foot with fat layer exposed; L97.522 Non-pressure chronic ulcer of other part of left foot with fat layer exposed; E11.42 Type 2 diabetes mellitus with diabetic polyneuropathy; F03.90 Unspecified dementia, unspecified severity, without behavioral disturbance, psychotic disturbance, mood disturbance, and anxiety | CPT/HCPCS: 11042; 99213 ==

== ENCOUNTER → 2024-08-17 15:03 | Outpatient (CLI) | payer MEDICARE, OTHER, SELFPAY | PROVIDERS: PCP Family Medicine; Referring Provider Family Medicine; Visit Provider Surgery | DX: E11.621 Type 2 diabetes mellitus with foot ulcer (principal); L97.512 Non-pressure chronic ulcer of other part of right foot with fat layer exposed; L97.522 Non-pressure chronic ulcer of other part of left foot with fat layer exposed; E11.42 Type 2 diabetes mellitus with diabetic polyneuropathy; L84 Corns and callosities | CPT/HCPCS: 11042; 97597 ==

== ENCOUNTER → 2024-08-23 11:42 | Outpatient (CLI) | payer MEDICARE, OTHER, SELFPAY | PROVIDERS: PCP Family Medicine; Referring Provider Family Medicine; Visit Provider Surgery | DX: E11.621 Type 2 diabetes mellitus with foot ulcer (principal); L97.512 Non-pressure chronic ulcer of other part of right foot with fat layer exposed; L97.522 Non-pressure chronic ulcer of other part of left foot with fat layer exposed; E11.42 Type 2 diabetes mellitus with diabetic polyneuropathy; M21.6X1 Other acquired deformities of right foot; M20.42 Other hammer toe(s) (acquired), left foot; L84 Corns and callosities | CPT/HCPCS: 11042 ==

== ENCOUNTER → 2024-08-31 15:49 | Outpatient (CLI) | payer MEDICARE, OTHER, SELFPAY | LOC: WC 15:51 | PROVIDERS: PCP Family Medicine; Referring Provider Family Medicine; Visit Provider Surgery | DX: E11.621 Type 2 diabetes mellitus with foot ulcer (principal); E11.42 Type 2 diabetes mellitus with diabetic polyneuropathy; L97.512 Non-pressure chronic ulcer of other part of right foot with fat layer exposed; M21.6X1 Other acquired deformities of right foot; M20.42 Other hammer toe(s) (acquired), left foot; L84 Corns and callosities | CPT/HCPCS: 11042 ==

== ENCOUNTER → 2024-09-08 13:56 | Outpatient (CLI) | payer MEDICARE, OTHER, SELFPAY | LOC: WC 13:58 | PROVIDERS: PCP Family Medicine; Referring Provider Family Medicine; Visit Provider Surgery | DX: E11.621 Type 2 diabetes mellitus with foot ulcer (principal); E11.42 Type 2 diabetes mellitus with diabetic polyneuropathy; L97.512 Non-pressure chronic ulcer of other part of right foot with fat layer exposed; L84 Corns and callosities; M21.6X1 Other acquired deformities of right foot; M20.42 Other hammer toe(s) (acquired), left foot; Z87.891 Personal history of nicotine dependence; F03.90 Unspecified dementia, unspecified severity, without behavioral disturbance, psychotic disturbance, mood disturbance, and anxiety | CPT/HCPCS: 11042; 99213 ==

== ENCOUNTER → 2024-09-15 16:01 | Outpatient (CLI) | payer MEDICARE, OTHER, SELFPAY | PROVIDERS: PCP Family Medicine; Referring Provider Family Medicine; Visit Provider Surgery | DX: E11.621 Type 2 diabetes mellitus with foot ulcer (principal); E11.42 Type 2 diabetes mellitus with diabetic polyneuropathy; L97.512 Non-pressure chronic ulcer of other part of right foot with fat layer exposed; L84 Corns and callosities; M21.6X1 Other acquired deformities of right foot; M20.42 Other hammer toe(s) (acquired), left foot | CPT/HCPCS: 11042 ==

== ENCOUNTER → 2024-09-23 10:27 | Outpatient (CLI) | payer MEDICARE, OTHER, SELFPAY | PROVIDERS: PCP Family Medicine; Referring Provider Family Medicine; Visit Provider Surgery | DX: E11.621 Type 2 diabetes mellitus with foot ulcer (principal); E11.40 Type 2 diabetes mellitus with diabetic neuropathy, unspecified; L97.512 Non-pressure chronic ulcer of other part of right foot with fat layer exposed; L84 Corns and callosities; L98.8 Other specified disorders of the skin and subcutaneous tissue; M21.6X1 Other acquired deformities of right foot | CPT/HCPCS: 11042 ==

== ENCOUNTER → 2024-09-30 15:13 | Outpatient (CLI) | payer MEDICARE, OTHER, SELFPAY | LOC: WC 15:18 | PROVIDERS: PCP Family Medicine; Referring Provider Family Medicine; Visit Provider Physician Assistant | DX: E11.621 Type 2 diabetes mellitus with foot ulcer (principal); L97.512 Non-pressure chronic ulcer of other part of right foot with fat layer exposed; L97.522 Non-pressure chronic ulcer of other part of left foot with fat layer exposed; L84 Corns and callosities; M21.6X1 Other acquired deformities of right foot; M20.42 Other hammer toe(s) (acquired), left foot; Z87.891 Personal history of nicotine dependence | CPT/HCPCS: 11042; 99213 ==

== ENCOUNTER → 2024-10-06 10:19 | Outpatient (CLI) | payer MEDICARE, OTHER, SELFPAY | LOC: WC 10:22 | PROVIDERS: PCP Family Medicine; Referring Provider Family Medicine; Visit Provider Surgery | DX: E11.621 Type 2 diabetes mellitus with foot ulcer (principal); E11.42 Type 2 diabetes mellitus with diabetic polyneuropathy; L97.512 Non-pressure chronic ulcer of other part of right foot with fat layer exposed; L97.522 Non-pressure chronic ulcer of other part of left foot with fat layer exposed; L84 Corns and callosities; M21.6X1 Other acquired deformities of right foot; M20.42 Other hammer toe(s) (acquired), left foot | CPT/HCPCS: 11042 ==

== ENCOUNTER → 2024-10-14 11:07 | Outpatient (CLI) | payer MEDICARE, OTHER, SELFPAY | LOC: WC 11:08 | PROVIDERS: PCP Family Medicine; Referring Provider Family Medicine; Visit Provider Physician Assistant | DX: E11.621 Type 2 diabetes mellitus with foot ulcer (principal); L97.512 Non-pressure chronic ulcer of other part of right foot with fat layer exposed; L97.522 Non-pressure chronic ulcer of other part of left foot with fat layer exposed; L84 Corns and callosities; E11.40 Type 2 diabetes mellitus with diabetic neuropathy, unspecified; I10 Essential (primary) hypertension; F03.90 Unspecified dementia, unspecified severity, without behavioral disturbance, psychotic disturbance, mood disturbance, and anxiety | CPT/HCPCS: 11042; 99213 ==

== ENCOUNTER → 2024-10-16 09:55 | Outpatient (CLI) | payer MEDICARE, OTHER, SELFPAY ==
--- NOTE | 2024-10-16 09:58 | DI.MRI.S_ITS ---
PROCEDURE: MRFOOT LT WO CON INDICATIONS: LT FOOT PAIN TECHNIQUE: Multiphasic, multisequence MRI of the forefoot was performed, without intravenous contrast administration. COMPARISON: [facility], CR, XR FOOT LT MIN 3V, 04/15/2024, 14:08. FINDINGS: Image quality: Excellent. Bones and joints: Pes planus alignment. No acute trabecular bone injury or fracture. Chronic healed fracture deformity at the midshaft of the 2nd metatarsal. Moderate to severe degenerative changes at the 1st and 2nd tarsometatarsal joints and additional scattered mild degenerative changes in the midfoot. Mild degenerative changes at the 1st metatarsophalangeal joint and at the interphalangeal joints of the toes. No suspicious intraosseous lesion is seen. Soft tissues: The visualized plantar foot muscles demonstrate diffuse grade 2-3 fatty infiltration suspicious for chronic denervation changes. There is diffuse thickening of the central band of the plantar fascia and plantar aponeurosis. A more focal area of thickening is seen at the level of the 1st metatarsal base measuring approximately the 22 x 8 x 38 mm that could represent a focal fascial fibroma. Mild intermediate signal soft tissue prominence along the plantar aspect of the interspace between the 2nd and 3rd metatarsal heads measuring approximately the 6 x 3 x 8 mm (8/16), which could represent a small Jackson neuroma. There is thinning of the subcutaneous tissues and T1w- hypointense signal plantar to the 4th metatarsal head, likely secondary to chronic pressure related changes. Visualized flexor and extensor tendons appear intact, without tenosynovitis. The distal insertions of the peroneus brevis and longus tendons appear intact. The principal Lisfranc ligament appears intact. Sagittal images demonstrate no evidence for plantar plate tears. IMPRESSION: 1. Pes planus alignment. 2. Moderate to severe osteoarthrosis at the 1st and 2nd tarsometatarsal joints. Additional scattered [id number] degenerative changes in the remainder of the midfoot and forefoot. 3. Diffuse thickening of the central band of the plantar fascia may be related to chronic fasciitis or fibromatosis. More focal thickening is seen plantar to the 1st metatarsal measuring up to 38 mm that could represent a focal fibroma. 4. Small focus of intermediate signal between the 2nd and 3rd metatarsal heads measuring up to 8 mm could represent a small interdigital Jackson neuroma. 5. Grade 2-3 fatty infiltration of the visualized musculature is likely related to chronic denervation changes. Approved by: John Salgado M.D. on 10/18/2024 at 9:38
--- NOTE | 2024-10-16 09:58 | DI.RAD.S_ITS ---
PROCEDURE: XR FOOT RT MIN 3V INDICATIONS: Non-healing DFU distal R 2nd toe, eval for osteo TECHNIQUE: 3 views of the foot were acquired. COMPARISON: [facility], CR, XR FOOT RT MIN 3V, 04/15/2024, 14:08. [facility], CR, XR FOOT LT MIN 3V, 04/15/2024, 14:08. [facility], CR, XR FOOT RT MIN 3V, 10/22/2023, 12:28. FINDINGS AND IMPRESSION: There is widening of the Lisfranc interval concerning for Lisfranc injury, incidentally noted. Moderate overall arthritic changes, most significant in the midfoot and 1st MTP. No definite cortical erosions of the 2nd ray. Plantar/calcaneal enthesopathy. If there is high concern for further derangement, consider MRI evaluation. Dictated by: Karsten Smith M.D. on 10/16/2024 at 19:54 Approved by: Karsten Smith M.D. on 10/16/2024 at 19:55
== END ==
PROVIDERS: PCP Family Medicine; Referring Provider Family Medicine; Visit Provider Podiatrist Foot & Ankle Surgery
DX: M86.172 Other acute osteomyelitis, left ankle and foot (principal); L97.512 Non-pressure chronic ulcer of other part of right foot with fat layer exposed; M77.31 Calcaneal spur, right foot
CPT/HCPCS: 73630; 73718

== ENCOUNTER → 2024-10-21 11:00 | Outpatient (CLI) | payer MEDICARE, OTHER, SELFPAY | PROVIDERS: PCP Family Medicine; Referring Provider Family Medicine; Visit Provider Surgery | DX: E11.621 Type 2 diabetes mellitus with foot ulcer (principal); E11.42 Type 2 diabetes mellitus with diabetic polyneuropathy; L97.512 Non-pressure chronic ulcer of other part of right foot with fat layer exposed; L97.522 Non-pressure chronic ulcer of other part of left foot with fat layer exposed; M21.6X1 Other acquired deformities of right foot; M20.42 Other hammer toe(s) (acquired), left foot | CPT/HCPCS: 11042; 11043; 87070; 87075; 87077; 87147; 87186; 87205; 97597; 99213 ==

== ENCOUNTER → 2024-10-21 12:49 | Outpatient (CLI) | payer MEDICARE, OTHER, SELFPAY ==
--- NOTE | 2024-10-21 12:50 | DI.MRI.S_ITS ---
PROCEDURE: MR FOOT RT WO/W CON INDICATIONS: XR concering for Lisfranc injury. Eval osteo R 2nd toe DFU TECHNIQUE: Multiphasic, multisequence MRI of the forefoot was performed, before and after intravenous contrast administration. COMPARISON: [facility], CR, XR FOOT RT MIN 3V, 10/16/2024, 10:26. [facility], MR, MR FOOT LT WO CON, 10/16/2024, 10:06. [facility], MR, MR FOOT RT WO/W CON, 04/21/2024, 16:42. FINDINGS: Image quality: Excellent. Bones and joints: Mild degenerative change of the 1st metatarsophalangeal joint. There is marrow edema of the tibial hallucal sesamoid, representing sesamoiditis. Soft tissue ulceration of about the 2nd toe, with marked soft tissue edema of the 2nd toe. There is diffuse marrow edema of the 2nd proximal, and mid phalanx, without confluent T1 hypointensity, representing reactive marrow edema. No osteomyelitis. Multifocal diffuse marrow edema in the midfoot, most pronounced at the tarsometatarsal joint, without confluent T1 hypointensity, nonspecific and may be degenerative as well. There is mild lateral subluxation of the 1st and 2nd metatarsal base with respect to the cuneiform. There is sprain with high-grade tear of the Lisfranc ligament (06:15). Soft tissues: Thickening of the plantar fascia, partially visualized, concerning for plantar fasciitis. The flexor, and extensor tendons are grossly unremarkable. Mild diffuse muscle edema without significant fatty atrophy, nonspecific. Mild subcutaneous edema of the dorsal mid and forefoot. No drainable fluid collection. IMPRESSION: 1. Soft tissue ulceration of the 2nd toe with reactive marrow edema of the 2nd proximal and mid phalanx. No osteomyelitis. No drainable fluid collection. 2. Multifocal marrow edema in the midfoot, which may be degenerative versus reactive. 3. Lateral subluxation of the 1st and 2nd metatarsal base with respect to the cuneiform, with high-grade tear of the Lisfranc ligament. 4. Plantar fasciitis. Dictated by: Nurys Mendez M.D. on 10/24/2024 at 10:00 Approved by: Nurys Mendez M.D. on 10/24/2024 at 10:11
== END ==
PROVIDERS: PCP Family Medicine; Referring Provider Physician Assistant; Visit Provider Physician Assistant
DX: L97.512 Non-pressure chronic ulcer of other part of right foot with fat layer exposed (principal); S93.331A Other subluxation of right foot, initial encounter; S93.691A Other sprain of right foot, initial encounter; M72.2 Plantar fascial fibromatosis; M25.474 Effusion, right foot; E11.621 Type 2 diabetes mellitus with foot ulcer; E11.42 Type 2 diabetes mellitus with diabetic polyneuropathy; L97.522 Non-pressure chronic ulcer of other part of left foot with fat layer exposed; M21.6X1 Other acquired deformities of right foot; M20.42 Other hammer toe(s) (acquired), left foot
CPT/HCPCS: 11042; 11043; 73720; 87070; 87077; 87147; 87186; 87205; 97597; A9579

== ENCOUNTER → 2024-10-26 10:56 | Outpatient (CLI) | payer MEDICARE, OTHER, SELFPAY | LOC: WC 10:58 | PROVIDERS: PCP Family Medicine; Referring Provider Family Medicine; Visit Provider Surgery | DX: E11.621 Type 2 diabetes mellitus with foot ulcer (principal); E11.42 Type 2 diabetes mellitus with diabetic polyneuropathy; L97.512 Non-pressure chronic ulcer of other part of right foot with fat layer exposed; L97.522 Non-pressure chronic ulcer of other part of left foot with fat layer exposed; M21.6X1 Other acquired deformities of right foot; M20.42 Other hammer toe(s) (acquired), left foot; L08.9 Local infection of the skin and subcutaneous tissue, unspecified | CPT/HCPCS: 11042 ==

== ENCOUNTER → 2024-11-02 10:29 | Outpatient (CLI) | payer MEDICARE, OTHER, SELFPAY | PROVIDERS: PCP Family Medicine; Referring Provider Family Medicine; Visit Provider Surgery | DX: E11.621 Type 2 diabetes mellitus with foot ulcer (principal); E11.42 Type 2 diabetes mellitus with diabetic polyneuropathy; L97.512 Non-pressure chronic ulcer of other part of right foot with fat layer exposed; Z86.31 Personal history of diabetic foot ulcer; L84 Corns and callosities; M21.6X1 Other acquired deformities of right foot; L08.9 Local infection of the skin and subcutaneous tissue, unspecified; M20.42 Other hammer toe(s) (acquired), left foot | CPT/HCPCS: 11042 ==

== ENCOUNTER → 2024-11-10 10:22 | Outpatient (CLI) | payer MEDICARE, OTHER, MEDICAID, SELFPAY ==
[2024-11-10 11:58] LABS: Add Manual Diff / Slide Review NO; Hematocrit 37.6 % (41-53); Hemoglobin 13.0 g/dL (13.5-17.5); Lymphocytes Absolute Auto 1300 /uL (1100-4500); Mean Corpuscular HGB Conc 34.7 % (30-36); Mean Corpuscular Hemoglobin 34.4 PG (26-34); Mean Corpuscular Volume 99.1 fL (80-100); Platelet Count 213 X10^3/uL (150-400)
[2024-11-10 12:14] LABS: HEMOLYSIS < 15 (0-50); Iron 74 ug/dL (49-181)
[2024-11-10 12:16] LABS: Alanine Aminotransferase 27 IU/L (<50); Albumin 4.0 g/dL (3.5-5.0); Albumin Globulin Ratio 1.7 (1.0-2.8); Alkaline Phosphatase 110 U/L (38-126); Blood Urea Nitrogen 26 mg/dL (9-20); Calcium 9.7 mg/dL (8.4-10.2); Carbon Dioxide 28 mmol/L (22-32); Chloride 101 mmol/L (98-107); Estimated Glomerular Filt Rate > 60 mL/min (>60); Globulin 2.3 g/dL (1.7-4.1); Glucose 148 mg/dL (70-99); HEMOLYSIS < 15 (0-50); Potassium 4.8 mmol/L (3.4-5.1); Sodium 135 mmol/L (137-145); Total Protein 6.3 g/dL (6.3-8.2)
[2024-11-10 12:17] LABS: Hemoglobin A1C% w Est Avg Glu 6.8 % (4.0-6.0)
[2024-11-10 12:26] LABS: Percent Iron Saturation 23 % (20-50); Total Iron Binding Capacity 319 ug/dL (261-462); Transferrin 258 mg/dL (206-381)
[2024-11-10 12:44] LABS: TSH w/ Reflex to FT4 0.60 uIU/mL (0.47-4.68)
[2024-11-10 13:03] LABS: Vitamin B12 528 pg/mL (239-931)
== END ==
PROVIDERS: PCP Family Medicine; Referring Provider Family Medicine; Visit Provider Family Medicine
DX: E11.59 Type 2 diabetes mellitus with other circulatory complications (principal); I10 Essential (primary) hypertension; N40.0 Benign prostatic hyperplasia without lower urinary tract symptoms; D64.9 Anemia, unspecified; N40.1 Benign prostatic hyperplasia with lower urinary tract symptoms; R35.1 Nocturia; D50.8 Other iron deficiency anemias; F10.27 Alcohol dependence with alcohol-induced persisting dementia; E78.00 Pure hypercholesterolemia, unspecified
CPT/HCPCS: 36415; 80053; 82607; 83036; 83540; 83550; 84443; 85025

== ENCOUNTER → 2024-11-10 13:20 | Outpatient (CLI) | payer MEDICARE, MEDICAID, SELFPAY | PROVIDERS: PCP Family Medicine; Referring Provider Family Medicine; Visit Provider Nurse Practitioner Family | DX: E11.621 Type 2 diabetes mellitus with foot ulcer (principal); L97.512 Non-pressure chronic ulcer of other part of right foot with fat layer exposed; L53.9 Erythematous condition, unspecified | CPT/HCPCS: 99213 ==

== ENCOUNTER → 2024-12-28 11:17 | Outpatient (CLI) | payer MEDICARE, MEDICAID, SELFPAY | LOC: WC 11:20 | PROVIDERS: PCP Family Medicine; Referring Provider Family Medicine; Visit Provider Physician Assistant | DX: E11.621 Type 2 diabetes mellitus with foot ulcer (principal); L97.522 Non-pressure chronic ulcer of other part of left foot with fat layer exposed; L97.512 Non-pressure chronic ulcer of other part of right foot with fat layer exposed; L08.9 Local infection of the skin and subcutaneous tissue, unspecified; L81.8 Other specified disorders of pigmentation; R23.4 Changes in skin texture; L92.9 Granulomatous disorder of the skin and subcutaneous tissue, unspecified; E11.40 Type 2 diabetes mellitus with diabetic neuropathy, unspecified; I10 Essential (primary) hypertension; F03.90 Unspecified dementia, unspecified severity, without behavioral disturbance, psychotic disturbance, mood disturbance, and anxiety; Z89.421 Acquired absence of other right toe(s); Z79.4 Long term (current) use of insulin | CPT/HCPCS: 11042; 87070; 87075; 87077; 87147; 87186; 87205; 99214 ==

== ENCOUNTER → 2025-01-04 10:05 | Outpatient (CLI) | payer MEDICARE, MEDICAID, SELFPAY | PROVIDERS: PCP Family Medicine; Referring Provider Family Medicine; Visit Provider Surgery | DX: E11.621 Type 2 diabetes mellitus with foot ulcer (principal); L97.522 Non-pressure chronic ulcer of other part of left foot with fat layer exposed; L97.512 Non-pressure chronic ulcer of other part of right foot with fat layer exposed; L08.9 Local infection of the skin and subcutaneous tissue, unspecified; L84 Corns and callosities; L98.8 Other specified disorders of the skin and subcutaneous tissue; L92.9 Granulomatous disorder of the skin and subcutaneous tissue, unspecified; E11.40 Type 2 diabetes mellitus with diabetic neuropathy, unspecified; Z89.421 Acquired absence of other right toe(s); I10 Essential (primary) hypertension; F03.90 Unspecified dementia, unspecified severity, without behavioral disturbance, psychotic disturbance, mood disturbance, and anxiety; Z87.891 Personal history of nicotine dependence | CPT/HCPCS: 11042 ==

== ENCOUNTER → 2025-01-04 11:30 | Outpatient (CLI) | payer MEDICARE, MEDICAID, SELFPAY ==
--- NOTE | 2025-01-04 11:31 | DI.RAD.S_ITS ---
PROCEDURE: XR FOOT RT MIN 3V INDICATIONS: non-healing ulcer on right great toe TECHNIQUE: 3 views of the foot were acquired. COMPARISON: [facility], CR, XR FOOT RT MIN 3V, 10/16/2024, 10:26. FINDINGS: Bones: 2nd ray amputation at the distal aspect of the proximal phalanx shows typical postop appearance. No specific radiographic evidence for osteomyelitis in the great toe or elsewhere. Diffuse osteoporosis noted. Moderate pes planus, os naviculare and old ununited nondisplaced fracture through the lateral malleolus Joints: Moderate degeneration throughout the midfoot 1st MTP and all interphalangeal joints seen as before Soft tissues: Moderate diffuse soft swelling likely represents edema or cellulitis IMPRESSION: No specific radiographic evidence for osteomyelitis Second ray amputation changes of the proximal phalangeal level -typical postop appearance Diffuse soft tissue swelling most compatible with cellulitis or less likely edema Dictated by: Alexi Edwards M.D. on 01/05/2025 at 10:43 Approved by: Alexi Edwards M.D. on 01/05/2025 at 10:46
--- NOTE | 2025-01-04 11:31 | DI.RAD.S_ITS ---
PROCEDURE: XR FOOT LT MIN 3V INDICATIONS: non-healing ulcer on left second toe TECHNIQUE: 3 views of the foot were acquired. COMPARISON: [facility], CR, XR FOOT LT MIN 3V, 10/22/2023, 12:28. [facility], CR, XR FOOT LT MIN 3V, 04/15/2024, 14:08. [facility], CR, XR FOOT RT MIN 3V, 10/16/2024, 10:26. FINDINGS: Bones: No acute fracture. Healed fracture deformity of the 2nd metatarsus. Dorsal and lateral dislocation of the 3rd PIP joint with overriding of bony structures. Cortical irregularity and mild lucency along the tuft of the 2nd digit with adjacent soft tissue swelling and ulceration. Background osteoarthritic changes redemonstrated. Multiple hammertoe deformities. Calcaneal enthesopathy. Soft tissues: No tibiotalar joint effusion. Achilles tendon appears normal. Vascular calcifications indicate atherosclerosis. IMPRESSION: 1. Cortical irregularity and lucency involving the tuft of the 2nd distal phalanx with adjacent soft tissue swelling and ulceration. Findings may be related to positioning and osteopenia although early developing osteomyelitis cannot be excluded. MRI could be performed for further evaluation if indicated clinically. 2. Dorsal dislocation of the 3rd PIP joint. 3. Background osteoarthritic changes. Dictated by: Juanito PEREZ Interpreted: John Salgado MD on 01/04/2025 at 13:16 Transcribed by: KELLI on 01/04/2025 at 13:21 Approved by: John Salgado M.D. on 01/04/2025 at 14:05
== END ==
PROVIDERS: PCP Family Medicine; Referring Provider Surgery; Visit Provider Surgery
DX: E11.621 Type 2 diabetes mellitus with foot ulcer (principal); L97.529 Non-pressure chronic ulcer of other part of left foot with unspecified severity; L97.519 Non-pressure chronic ulcer of other part of right foot with unspecified severity; S93.115A Dislocation of interphalangeal joint of left lesser toe(s), initial encounter; M79.89 Other specified soft tissue disorders
CPT/HCPCS: 73630

== ENCOUNTER → 2025-02-27 15:33 | Outpatient (CLI) | payer MEDICARE, MEDICAID, OTHER, SELFPAY | PROVIDERS: PCP Family Medicine; Visit Provider Family Medicine | DX: N30.00 Acute cystitis without hematuria (principal) | CPT/HCPCS: 87077; 87086 ==

== ENCOUNTER 2025-02-27 16:43 | Inpatient (IN) | payer MEDICARE, OTHER, MEDICAID, SELFPAY ==
[2025-02-27] VITALS (11 sets, daily range): BP systolic 123–163; BP diastolic 60–77; PULSE 87–110; RESP 18; TEMP 37.1–38.4; O2SAT 93–98; BMI 23.0
[2025-02-27] MEDS: cefTRIAXone 2,000 MG in SODIUM CHLORIDE 0.9% 100 ML 200 MG IV (17:15)
--- NOTE | 2025-02-27 17:15 | DI.RAD.S_ITS ---
PROCEDURE: XR CHEST 1V INDICATIONS: suspected sepsis TECHNIQUE: One view of the chest was acquired. COMPARISON: [facility], CR, XR CHEST 1V, 05/30/2023, 11:29. FINDINGS: Surgical changes and devices: None. Lungs and pleura: Lungs are clear. No pleural effusions or pneumothorax. Mediastinum: Mediastinal contours appear normal. Heart size is normal. Bones and chest wall: No suspicious bony lesions. Overlying soft tissues appear unremarkable. IMPRESSION: No acute cardiopulmonary abnormality is seen. Dictated by: Kwabena Coronado M.D. on 02/27/2025 at 19:28 Approved by: Kwabena Coronado M.D. on 02/27/2025 at 19:29
[2025-02-27] MEDS: LACTATED RINGERS 1,000 ML 1000 ML IV (17:16)
[2025-02-27] MEDS: ACETAMINOPHEN 325 MG TABLET 975 MG PO (17:16)
--- NOTE | 2025-02-27 17:20 | ED.SEPSIS ---
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 Other than what is stated 14 point review of system is negative. Review of Systems Review of Systems ROS Unobtainable: All systems reviewed & are unremarkable except as noted in HPI and below Patient History Medical History UTI (urinary tract infection) Preoperative clearance Allergic conjunctivitis BPH (benign prostatic hyperplasia) Anemia Hypertension Type 2 diabetes mellitus History of alcoholism History of tobacco abuse Dementia Hyperlipidemia Surgical History History of amputation of toe Social History household members: none Smoking Status: Former smoker alcohol intake frequency: 0-2 drinks per day Exam Narrative Exam Narrative: GENERAL: [79] year old patient appears stated age. Well-developed patient, in mild distress. HEAD: Atraumatic. Normocephalic. EYES: Pupils equal round and reactive. Extraocular motions intact. No scleral icterus. No injection or drainage. ENT: Nose without bleeding, purulent drainage. Throat without erythema, tonsillar hypertrophy or exudate. Airway patent. NECK: Trachea midline. Non tender CARDIOVASCULAR: Regular rate and rhythm without murmurs, gallops, or rubs. RESPIRATORY: Clear to auscultation. Breath sounds equal bilaterally. No wheezes, rales, or rhonchi. GASTROINTESTINAL: Abdomen soft, non-tender, nondistended. EXTREMITIES: No edema or joint tenderness. BACK: Nontender without deformity or crepitance. No flank tenderness. NEURO: AOx2. SKIN: No rash or erythema of visible areas. Toe amputation on both feet but no visible skin breakdown seen on foot exam of both feet. Motor sensory intact +1 DP +1 PT cap refill less than 2 seconds Initial Vital Signs Initial Vital Signs: Vital Signs Temperature 98.8 F 02/27/25 16:59 Pulse Rate 110 H 02/27/25 16:59 Respiratory Rate 18 02/27/25 16:59 Blood Pressure 149/77 H 02/27/25 16:59 Pulse Oximetry 97 02/27/25 16:59 Oxygen Delivery Method Room Air 02/27/25 16:59 Course Orders Ordered: Acetaminophen (Acetaminophen 325 Mg Tablet) 650 mg PO Q6H PRN PRN Reason: Pain, Mild (1-3) Albuterol (Albuterol 2.5 Mg/3 Ml Neb (Adult)) 2.5 mg INH Q6H PRN PRN Reason: Shortness Of Breath Or Wheezing Buspirone HCl (Buspirone 5 Mg Tablet) 7.5 mg PO BID [facility] Last Admin: 02/27/25 21:10 Dose: 7.5 mg Documented By: WAI Enoxaparin Sodium (Enoxaparin 40 Mg/0.4 Ml Syringe) 40 mg SUBCUT DAILY [facility] Hydroxyzine HCl (Hydroxyzine Hcl 25 Mg Tablet) 25 mg PO Q6H PRN PRN Reason: Anxiety Last Admin: 02/27/25 22:10 Dose: 25 mg Documented By: ALEXIS Ceftriaxone Sodium 2,000 mg/ (Sodium Chloride) 100 mls @ 200 mls/hr IV Q24H [facility] Sodium Chloride (Normal Saline 0.9%) 1,000 mls @ 100 mls/hr IV CONT [facility] Last Admin: 02/28/25 06:51 Dose: 100 mls/hr Documented By: Infusion: 02/28/25 06:51 Dose: Infused Documented By: Admin: 02/27/25 21:06 Dose: 100 mls/hr Documented By: WAI Insulin Glargine (Insulin Glargine 100 Unit/Ml 3ml Pen) 8 unit SUBCUT BEDTIME [facility] Insulin Human Lispro (Insulin Lispro 100 Unit/Ml 3ml Vial) 0 unit SUBCUT ACHS [facility]; Protocol Lisinopril (Lisinopril 20 Mg Tablet) 20 mg PO DAILY [facility] Naloxone HCl (Naloxone 0.4 Mg/Ml Vial) 0.2 mg IV Q2MIN PRN PRN Reason: Opiate Reversal Ondansetron HCl (Ondansetron 4 Mg/2 Ml Inj) 4 mg IV Q8HR PRN PRN Reason: Nausea And Vomiting Phenazopyridine HCl (Phenazopyridine 100 Mg Tablet) 200 mg PO Q6H PRN PRN Reason: Dysuria Quetiapine Fumarate (Quetiapine 25 Mg Tablet) 12.5 mg PO BEDTIME [facility] Last Admin: 02/27/25 22:10 Dose: 12.5 mg Documented By: ALEXIS Tamsulosin HCl (Tamsulosin 0.4 Mg Capsule) 0.4 mg PO BEDTIME [facility] Last Admin: 02/27/25 21:10 Dose: 0.4 mg Documented By: WAI Discontinued Medications Acetaminophen (Acetaminophen 325 Mg Tablet) 975 mg PO NOW ONE Stop: 02/27/25 17:11 Last Admin: 02/27/25 17:16 Dose: 975 mg Documented By: SBF Lactated Ringer's (Lactated Ringers) 1,000 mls @ 1,000 mls/hr IV BOLUS ONE Stop: 02/27/25 18:08 Last Infusion: 02/27/25 18:52 Dose: Infused Documented By: Admin: 02/27/25 17:16 Dose: 1,000 mls/hr Documented By: SBF Ceftriaxone Sodium 2,000 mg/ (Sodium Chloride) 100 mls @ 200 mls/hr IV NOW ONE Stop: 02/27/25 17:10 Last Infusion: 02/27/25 17:50 Dose: Infused Documented By: Admin: 02/27/25 17:15 Dose: 200 mls/hr Documented By: SBF Sodium Chloride (Normal Saline 0.9%) 1,000 mls @ 1,000 mls/hr IV BOLUS ONE Stop: 02/27/25 18:14 Last Admin: 02/27/25 18:52 Dose: Not Given Documented By: SBF Lactated Ringer's (Lactated Ringers) 1,000 mls @ 2,000 mls/hr IV NOW ONE Stop: 02/27/25 19:20 Last Infusion: 02/27/25 23:38 Dose: Infused Documented By: Admin: 02/27/25 18:53 Dose: 2,000 mls/hr Documented By: SBF Insulin Human Lispro (Insulin Lispro 100 Unit/Ml 3ml Vial) 0 unit SUBCUT Q6H [facility]; Protocol Last Admin: 02/27/25 21:02 Dose: Not Given Documented By: CHARLES Ondansetron HCl (Ondansetron 4 Mg/2 Ml Inj) 4 mg IV NOW PRN PRN Reason: Nausea And Vomiting Ondansetron HCl (Ondansetron 4 Mg Odt) 4 mg PO NOW PRN PRN Reason: Nausea And Vomiting Quetiapine Fumarate (Quetiapine 25 Mg Tablet) 12.5 mg PO BEDTIME TERRY Vital Signs Vital signs: Vital Signs - 8 hr 02/27/25 16:59 02/27/25 17:10 Temperature 98.8 F 101.1 F H Pulse Rate 110 H Respiratory Rate 18 Blood Pressure 149/77 H Pulse Oximetry 97 Oxygen Delivery Method Room Air Sepsis Evaluation (ED) Triage Screening Sepsis Screen: No Definite Risk Level 1 - Infection Sepsis Infection Criteria Present: Documented Infection Response It is my opinion that this patient have a likely infectious etiology for meeting sepsis criteria: Does (UTI) Fluid calculation based on 30 mL/kg within 1hr of criteria: ABW used Antibiotics initiated within 1 hr of Sepis dx: Yes Tissue Perfusion Reassessed within 6 hrs of infusion start time: Yes Date of Tissue Perfusion Reassessment completed: 02/27/25 Time Tissue Perfusion Reassessment completed: 09:05 MDM - Sepsis Lab Data 02/28/25 04:35 02/28/25 04:35 Labs: Lab Results 02/27/25 02/27/25 Range/Units 17:05 17:13 WBC 8.5 (4.5-11.0) X10^3/uL RBC 3.54 L (4.5-5.9) X10^6/uL Hgb 11.5 L (13.5-17.5) g/dL Hct 33.3 L (41-53) % MCV 94.1 (80-100) fL MCH 32.4 (26-34) PG MCHC 34.4 (30-36) % RDW 15.6 H (11.6-14.8) % Plt Count 234 (150-400) X10^3/uL Neut % (Auto) 88.5 H (50-75) % Lymph % (Auto) 8.0 L (25-40) % [place] % (Auto) 3.0 (3-14) % Eos % (Auto) 0.2 L (2-4) % Baso % (Auto) 0.3 (0-2) % Neut # (Auto) 7500 H (2209-6073) /uL Lymph # (Auto) 700 L (8322-2713) /uL [place] # (Auto) 300 (0-900) /uL Eos # (Auto) 0 (0-450) /uL Baso # (Auto) 0 (0-100) /uL PT 11.4 (9.4-12.5) SECONDS INR 1.0 (0.9-1.3) APTT 27 (25.1-36.5) SECONDS Sodium 139 (137-145) mmol/L Potassium 4.0 (3.4-5.1) mmol/L Chloride 102 (98-107) mmol/L Carbon Dioxide 28 (22-32) mmol/L BUN 23 H (9-20) mg/dL Creatinine 0.93 (0.66-1.25) mg/dL Estimated GFR > 60 (>60) mL/min BUN/Creatinine Ratio 24.7 H (6-22) Glucose 220 H (70-99) mg/dL Lactate 2.4 H (0.7-2.1) mmol/L Calcium 9.7 (8.4-10.2) mg/dL Total Bilirubin 1.7 H (0.2-1.3) mg/dL AST 2085 H (17-59) IU/L ALT 1030 H (<50) IU/L Alkaline Phosphatase 1173 H (38-126) U/L Total Protein 7.7 (6.3-8.2) g/dL Albumin 4.2 (3.5-5.0) g/dL Globulin 3.5 (1.7-4.1) g/dL Albumin/Globulin Ratio 1.2 (1.0-2.8) Lipase 160 (23-300) U/L Procalcitonin 0.127 (<0.5) ng/mL Urine Color Yellow Urine Appearance Sl cloudy Urine pH 5.5 (4.5-8.0) Ur Specific [place] 1.020 (1.000-1.035) Urine Protein 1+ H (Negative) Urine Glucose (UA) Negative (Negative) g/dL Urine Ketones Trace H (NEGATIVE) Urine Occult Blood Trace-intact (Negative) Urine Nitrate Positive H (Negative) Urine Bilirubin Negative (NEGATIVE) Urine Urobilinogen 4.0 H (0.2) E.U./dL Ur Leukocyte Esterase 1+ H (NEGATIVE) Urine RBC 0-1/hpf (0-5/HPF) Urine WBC 5-10/hpf H (0-5/HPF) Ur Squamous Epith Cells 1-5 /hpf (0-5/HPF) Urine Bacteria Many (>30) H (None) Ur Culture Indicated? Specimen cultured Vol Urine Centrifuged 10ml (spun) ECG Data Interpretation: RBBB HR 99PR 226 QRS [address]-t wave Unchanged from 05/30/23 MDM Narrative Medical decision making narrative: All lab work ,vital signs, nurse triage note, medication list, previous ER visits, and all imaging studies reviewed. UA shows positive nitrites positive leukocyte trace ketones positive protein 5-10 WBC many bacteria. WBC 8.5 hemoglobin 11.5 platelet 234 INR 1.0 sodium 139 potassium 4.0 chloride 102 CO2 28 BUN 23 creatinine 0.93 glucose 220 lactic acid 2.4 T bili 1.7 his T 2085 LT 10 30 lipase 160 procalcitonin 0.127. Patient given lactated Ringer's 1 L bolus Rocephin 2 g IV x1. Case discussed with hospitalist for admission. Differential diagnosis sepsis UTI pneumonia electrolyte derangement. Discharge Plan Departure Patient Disposition: Admitted as Observation Clinical Impression: Acute UTI Admit Date/Time: 02/27/25 18:38 Admit Provider: Yuri Dubose
--- NOTE | 2025-02-27 17:22 | EKG_ITS ---
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
[2025-02-27 17:26] LABS: Appearance Urine UA SL CLOUDY; Bilirubin Urine UA NEGATIVE (NEGATIVE); Color Urine UA YELLOW; Glucose Urine UA NEGATIVE (Negative); Ketones Urine UA TRACE (NEGATIVE); Leukocyte Esterase Urine UA 1+ (NEGATIVE); Nitrite Urine UA POSITIVE (Negative); Occult Blood Urine UA TRACE-INTACT (Negative); Protein Urine UA 1+ (Negative); Specific Gravity Urine UA 1.020 (1.000-1.035); Urobilinogen Urine UA 4.0 E.U./dL (0.2); pH Urine UA 5.5 (4.5-8.0)
[2025-02-27 17:29] LABS: Add Manual Diff / Slide Review NO; Hematocrit 33.3 % (41-53); Hemoglobin 11.5 g/dL (13.5-17.5); Lymphocytes Absolute Auto 700 /uL (1100-4500); Mean Corpuscular HGB Conc 34.4 % (30-36); Mean Corpuscular Hemoglobin 32.4 PG (26-34); Mean Corpuscular Volume 94.1 fL (80-100); Platelet Count 234 X10^3/uL (150-400)
[2025-02-27 17:31] LABS: INR 1.0 (0.9-1.3); Prothrombin Time 11.4 SECONDS (9.4-12.5)
[2025-02-27 17:33] LABS: PTT Partial Thromboplastin Tim 27 SECONDS (25.1-36.5)
[2025-02-27 17:34] LABS: Albumin 4.2 g/dL (3.5-5.0); Albumin Globulin Ratio 1.2 (1.0-2.8); Alkaline Phosphatase 1173 U/L (38-126); Blood Urea Nitrogen 23 mg/dL (9-20); Calcium 9.7 mg/dL (8.4-10.2); Carbon Dioxide 28 mmol/L (22-32); Chloride 102 mmol/L (98-107); Estimated Glomerular Filt Rate > 60 mL/min (>60); Globulin 3.5 g/dL (1.7-4.1); Glucose 220 mg/dL (70-99); HEMOLYSIS < 15 (0-50); Lipase 160 U/L (23-300); Potassium 4.0 mmol/L (3.4-5.1); Sodium 139 mmol/L (137-145); Total Protein 7.7 g/dL (6.3-8.2)
[2025-02-27 17:34] LABS: Culture Indicated Urine Specimen Cultured
[2025-02-27 17:35] LABS: Lactate (Lactic Acid) 2.4 mmol/L (0.7-2.1)
[2025-02-27 17:41] LABS: Alanine Aminotransferase 1030 IU/L (<50)
[2025-02-27 17:51] LABS: Procalcitonin 0.127 ng/mL (<0.5)
[2025-02-27] MEDS: LACTATED RINGERS 1,000 ML 2000 ML IV (18:53)
[2025-02-27 18:55] LABS: Reflexed Lactate in 2 Hours Y
[2025-02-27 19:26] LABS: Lactate 2HR (Lactic Acid Rflx) 2.1 mmol/L (0.7-2.1)
[2025-02-27] MEDS: SODIUM CHLORIDE 0.9% 1,000 ML 100 ML IV (21:06)
[2025-02-27] MEDS: TAMSULOSIN 0.4 MG CAPSULE PO (21:10)
--- NOTE | 2025-02-27 23:28 | PM.HP.1 ---
History of Present Illness History of Present Illness Chief complaint: shivering, stomach pain, dementia Narrative: 71 years old male with history of diabetes mellitus type 2, diabetic polyneuropathy, diabetic ulcer with amputation of multiple toes on his feet, dementia presented to the ER with UTI and was by his PCP. The patient was complaining of fever, chills, body aches. The patient is poor historian due to his advanced dementia but denies any symptoms. Laboratory in the ER shows WBC 8.5, H&H 11.5/33.3, potassium 4, creatinine 0.93, blood sugar 220, lactate 2.4, AST 2085, ALT 1030, total bilirubin 1.7, lipase 160, UA positive for UTI. Chest x-ray unremarkable. In the ER she was given fluid bolus and Rocephin 2 g IV. [facility] Medical History UTI (urinary tract infection) Preoperative clearance Allergic conjunctivitis BPH (benign prostatic hyperplasia) Anemia Hypertension Type 2 diabetes mellitus History of alcoholism History of tobacco abuse Dementia Hyperlipidemia Surgical History History of amputation of toe Social History household members: none Smoking Status: Former smoker Meds Home Medications and Allergies Home Medications ?Medication ?Instructions ?Recorded ?Confirmed ?Type blood sugar diagnostic (Blood #50 ea 06/04/23 02/27/25 Rx Glucose Test strips) blood-glucose meter #1 ea 06/04/23 02/27/25 Rx lancets #100 ea 06/04/23 02/27/25 Rx prevagen vitamin PO 06/04/23 02/24/25 History ferrous gluconate 324 mg (38 mg 324 mg PO DAILY #90 tabs 06/17/24 02/27/25 Rx iron) tablet atorvastatin 20 mg tablet 20 mg PO DAILY #28 tabs 10/14/24 02/27/25 Rx metformin 500 mg tablet,extended 500 mg PO BID #56 tabs 10/14/24 02/27/25 Rx release 24 hr tamsulosin 0.4 mg capsule 0.4 mg PO ONCE PM #28 caps 10/14/24 02/27/25 Rx albuterol sulfate 90 mcg/actuation 2 puff PO Q6H PRN shortness of 12/27/24 02/27/25 Rx aerosol inhaler breath or wheezing #8.5 grams lisinopril 20 mg tablet 20 mg PO DAILY #90 tabs 01/06/25 02/27/25 Rx lisinopril 20 0.5 tab PO DAILY for blood 01/09/25 02/27/25 Rx mg-hydrochlorothiazide 12.5 mg pressure #14 tabs tablet quetiapine 25 mg tablet 12.5 mg (1/2 x 25 mg) PO QPM #14 01/09/25 02/27/25 Rx tabs acetaminophen 325 mg capsule 650 mg PO Q6H PRN pain 02/24/25 02/27/25 History buspirone 15 mg tablet 7.5 mg PO BID 02/24/25 02/27/25 History hydroxyzine HCl 25 mg tablet 25 mg PO Q6H PRN anxiety 02/24/25 02/27/25 History insulin glargine 100 unit/mL (3 8 unit (0.08 mL) SUBCUT QPM #3 mL 02/24/25 02/27/25 Rx mL) subcutaneous pen (Lantus Solostar U-100 Insulin) phenazopyridine 200 mg tablet 200 mg PO Q6H PRN bladder spasms 02/24/25 02/27/25 History (Pyridium) ketoconazole 2 % topical cream 1 applic topical BID #60 grams 02/27/25 02/27/25 Rx sulfamethoxazole 800 1 tab PO BID #30 tabs 02/27/25 02/27/25 Rx mg-trimethoprim 160 mg tablet (Bactrim DS) wheelchair #1 ea 02/27/25 02/27/25 Rx Allergies Allergy/AdvReac Type Severity Reaction Status Date / Time No Known Drug Allergies Allergy Verified 02/27/25 16:59 Review of Systems Review of Systems ROS: Yes All systems reviewed with the patient and are negative except as otherwise documented Constitutional Constitutional: Reports as per HPI and Reports system reviewed and no additional complaints, except as documented Eyes Eyes: Reports as per HPI and Reports system reviewed and no additional complaints, except as documented ENT Ears, Nose, Mouth, and Throat: Yes as per HPI and Yes system reviewed and no additional complaints, except as documented Cardiovascular Cardiovascular: Reports system reviewed and no additional complaints, except as documented Respiratory Respiratory: Reports system reviewed and no additional complaints, except as documented Gastrointestinal Gastrointestinal: Reports system reviewed and no additional complaints, except as documented Genitourinary Genitourinary: Reports system reviewed and no additional complaints, except as documented Musculoskeletal Musculoskeletal: Reports system reviewed and no additional complaints, except as documented, Reports abnormal gait and Reports numbness Neurologic Neurologic: Reports system reviewed and no additional complaints, except as documented, Reports abnormal gait, Reports confusion and Reports numbness Psychiatric Psychiatric: Reports system reviewed and no additional complaints, except as documented and Reports confusion Exam Vital Signs (past 8 hours): - 02/27/25 16:59 02/27/25 17:10 02/27/25 17:48 Temperature 98.8 F 101.1 F H Pulse Rate 110 H 91 H Respiratory Rate 18 Blood Pressure 149/77 H Pulse Oximetry 97 94 Oxygen Delivery Method Room Air Oxygen Flow Rate 02/27/25 18:00 02/27/25 18:00 02/27/25 18:30 Temperature Pulse Rate 95 H 87 Respiratory Rate Blood Pressure 151/70 H Pulse Oximetry 96 95 Oxygen Delivery Method Oxygen Flow Rate 02/27/25 18:31 02/27/25 18:31 02/27/25 19:00 Temperature Pulse Rate 94 H Respiratory Rate Blood Pressure 146/68 H 163/74 H Pulse Oximetry 96 Oxygen Delivery Method Oxygen Flow Rate 02/27/25 19:00 02/27/25 19:30 02/27/25 19:30 Temperature Pulse Rate 96 H 87 Respiratory Rate Blood Pressure 152/70 H Pulse Oximetry 97 95 Oxygen Delivery Method Oxygen Flow Rate 02/27/25 20:00 02/27/25 20:00 02/27/25 20:49 Temperature 100.0 F H Pulse Rate 87 Respiratory Rate Blood Pressure 128/60 Pulse Oximetry 93 Oxygen Delivery Method Oxygen Flow Rate 02/27/25 21:32 Temperature 100.0 F H Pulse Rate 89 Respiratory Rate 18 Blood Pressure 123/66 Pulse Oximetry 98 Oxygen Delivery Method Oxygen Flow Rate 0 Oxygen Delivery Method Room Air Oxygen Flow Rate 0 Const General: cooperative, comfortable and well developed Orientation: alert and oriented x3 HENMT Head: normal to inspection, normocephalic and atraumatic Face and sinus: normal facial exam Mouth: oral mucosae normal and moist mucous membranes Throat: posterior oropharynx normal Eyes General: appearance normal, both eyes and all related structures Pupils: PERRL EOM: EOM intact bilaterally Neck Neck: normal visual inspection and full ROM Chest Chest: normal inspection of the chest Resp Effort & Inspection: normal respiratory effort and able to speak in complete sentences Auscultation: clear to auscultation bilaterally Cardio Palpation: normal PMI Rate: regular rate Rhythm: regular rhythm Heart Sounds: S1 normal and S2 normal GI Inspection: normal to inspection Palpation: soft and no hepatosplenomegaly Auscultation: normal bowel sounds Skin General: no rashes or lesions noted Lesions: no lesions Rashes: no rashes Trauma: no lacerations or abrasions Neuro General: patient alert, patient awake, patient oriented x3 and no focal motor deficits Cranial Nerves: CN's II-XI intact bilaterally Cognition: normal cognition Speech: speech normal Gait: normal gait Motor: muscle tone normal throughout Sensory Exam: no sensory deficits noted Extrem General: full ROM and no calf tenderness Psych Appearance: grossly normal Mental Status: mental status grossly normal Speech and Movement: speech and movement normal Objective Labs 02/27/25 17:05 02/27/25 17:05 Labs: Laboratory Results - last 24 hr 02/27/25 02/27/25 02/27/25 17:05 17:13 19:06 WBC 8.5 RBC 3.54 L Hgb 11.5 L Hct 33.3 L MCV 94.1 MCH 32.4 MCHC 34.4 RDW 15.6 H Plt Count 234 Neut % (Auto) 88.5 H Lymph % (Auto) 8.0 L [place] % (Auto) 3.0 Eos % (Auto) 0.2 L Baso % (Auto) 0.3 Neut # (Auto) 7500 H Lymph # (Auto) 700 L [place] # (Auto) 300 Eos # (Auto) 0 Baso # (Auto) 0 PT 11.4 INR 1.0 APTT 27 Sodium 139 Potassium 4.0 Chloride 102 Carbon Dioxide 28 BUN 23 H Creatinine 0.93 Estimated GFR > 60 BUN/Creatinine Ratio 24.7 H Glucose 220 H POC Whole Bld Glucose Lactate 2.4 H 2.1 Calcium 9.7 Total Bilirubin 1.7 H AST 2085 H ALT 1030 H Alkaline Phosphatase 1173 H Total Protein 7.7 Albumin 4.2 Globulin 3.5 Albumin/Globulin Ratio 1.2 Lipase 160 Procalcitonin 0.127 Urine Color Yellow Urine Appearance Sl cloudy Urine pH 5.5 Ur Specific [place] 1.020 Urine Protein 1+ H Urine Glucose (UA) Negative Urine Ketones Trace H Urine Occult Blood Trace-intact Urine Nitrate Positive H Urine Bilirubin Negative Urine Urobilinogen 4.0 H Ur Leukocyte Esterase 1+ H Urine RBC 0-1/hpf Urine WBC 5-10/hpf H Ur Squamous Epith Cells 1-5 /hpf Urine Bacteria Many (>30) H Ur Culture Indicated? Specimen cultured Vol Urine Centrifuged 10ml (spun) 02/27/25 20:56 WBC RBC Hgb Hct MCV MCH MCHC RDW Plt Count Neut % (Auto) Lymph % (Auto) [place] % (Auto) Eos % (Auto) Baso % (Auto) Neut # (Auto) Lymph # (Auto) [place] # (Auto) Eos # (Auto) Baso # (Auto) PT INR APTT Sodium Potassium Chloride Carbon Dioxide BUN Creatinine Estimated GFR BUN/Creatinine Ratio Glucose POC Whole Bld Glucose 159 H Lactate Calcium Total Bilirubin AST ALT Alkaline Phosphatase Total Protein Albumin Globulin Albumin/Globulin Ratio Lipase Procalcitonin Urine Color Urine Appearance Urine pH Ur Specific [place] Urine Protein Urine Glucose (UA) Urine Ketones Urine Occult Blood Urine Nitrate Urine Bilirubin Urine Urobilinogen Ur Leukocyte Esterase Urine RBC Urine WBC Ur Squamous Epith Cells Urine Bacteria Ur Culture Indicated? Vol Urine Centrifuged Assessment & Plan Assessment & Plan narrative: Sepsis due to UTI -Blood culture, urine culture, -Antibiotics, ceftriaxone, -Monitor for urine retention, check post void residuals. - IV fluids -Symptomatic treatment with Tylenol for fever, pain medications and antiemetics as needed -Recheck lactic acid Elevated LFT. Presented with LFT abnormality - AST 2085, ALT 1030, total bilirubin 1.7, lipase 160. Unclear etiology. -Consider hepatitis panel - Abdominal ultrasound -trend, daily CMP Diabetes mellitus, type II with long-term current use of insulin, uncontrolled with hyperglycemia, -check HbA1c. -Continue to monitor blood sugar. -Hold metformin during the hospital stay -Continue diabetic diet with sliding scale insulins with NovoLog sliding scale. -hypoglycemia protocol as needed Hyperlipidemia. Restart atorvastatin. COPD. Restart buspirone and albuterol as needed. Hypertension. Restart lisinopril and hydrochlorothiazide. BPH. Restart Flomax. Time-Based Coding :: [TOTAL MINUTES] spent with patient and on the chart (including review of chart, obtaining history, exam, reviewing outside data, placing orders, documenting exam and treatment plan, and counseling patient) on [DATE]. Quality VTE Deep Vein Thrombosis/Pulmonary Embolism Present on Admission: No MIPS - Admit I confirm the patient?s Advance Care Plan is present, Code status is documented, Surrogate decision maker is in patient?s record [If Yes, STOP here]: Yes MIPS - Meds 'Current medications' to include all prescriptions, [id number] products, herbals, cannabis/cannabidiol products, and vitamin/mineral/dietary (nutritional) supplements. I have utilized all available resources to obtain, update, or review the patient?s current medications. [If Yes, STOP here]: Yes
[2025-02-28 01:53] VITALS: TEMP 37.2
[2025-02-28 02:23] LABS: Acinetobacter calcoa-baumannii Not Detected (Not Detect); Bacteroides fragilis Not Detected (Not Detect); CTX-M Resistance Not Detected (Not Detect); Candida auris Not Detected (Not Detect); Candida glabrata Not Detected (Not Detect); Cryptococcus neoformans/gatti Not Detected (Not Detect); Enterobacterales Detected (Not Detect); Enterococcus faecalis Not Detected (Not Detect); Enterococcus faecium Not Detected (Not Detect); IMP Resistance Not Detected (Not Detect); KPC Resistance Not Detected (Not Detect); Klebsiella aerogenes Not Detected (Not Detect); NDM Resistance Not Detected (Not Detect); OXA-48-like Resistance Not Detected (Not Detect); Proteus species Not Detected (Not Detect); Serratia marcescens Not Detected (Not Detect); Staphylococcus epidermidis Not Detected (Not Detect); Staphylococcus lugdunensis Not Detected (Not Detect); Staphylococcus species Not Detected (Not Detect); Stenotrophomonas maltophilia Not Detected (Not Detect); Streptococcus agalactiae (Gr B Not Detected (Not Detect); Streptococcus pneumonia Not Detected (Not Detect); Streptococcus pyogenes (Gr A) Not Detected (Not Detect); Streptococcus species Not Detected (Not Detect); VIM Resistance Not Detected (Not Detect); mcr-1 Resistance Not Detected (Not Detect)
[2025-02-28 06:02] LABS: Albumin 3.3 g/dL (3.5-5.0); Albumin Globulin Ratio 1.2 (1.0-2.8); Alkaline Phosphatase 903 U/L (38-126); Blood Urea Nitrogen 18 mg/dL (9-20); Calcium 8.4 mg/dL (8.4-10.2); Carbon Dioxide 28 mmol/L (22-32); Chloride 105 mmol/L (98-107); Estimated Glomerular Filt Rate > 60 mL/min (>60); Globulin 2.8 g/dL (1.7-4.1); Glucose 195 mg/dL (70-99); HEMOLYSIS < 15 (0-50); Potassium 3.7 mmol/L (3.4-5.1); Sodium 137 mmol/L (137-145); Total Protein 6.1 g/dL (6.3-8.2)
[2025-02-28 06:20] LABS: Alanine Aminotransferase 2128 IU/L (<50)
[2025-02-28 06:39] LABS: Add Manual Diff / Slide Review NO; Hematocrit 29.5 % (41-53); Hemoglobin 9.9 g/dL (13.5-17.5); Lymphocytes Absolute Auto 700 /uL (1100-4500); Mean Corpuscular HGB Conc 33.5 % (30-36); Mean Corpuscular Hemoglobin 30.9 PG (26-34); Mean Corpuscular Volume 92.4 fL (80-100); Platelet Count 184 X10^3/uL (150-400)
[2025-02-28] MEDS: SODIUM CHLORIDE 0.9% 1,000 ML 100 ML IV ×2 (06:51→16:46)
--- NOTE | 2025-02-28 07:56 | PM.PN.1 ---
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 The patient was complaining of fever, chills, body aches. The patient is poor historian due to his advanced dementia but denies any symptoms. Laboratory in the ER shows WBC 8.5, H&H 11.5/33.3, potassium 4, creatinine 0.93, blood sugar 220, lactate 2.4, AST 2085, ALT 1030, total bilirubin 1.7, lipase 160, UA positive for UTI. Chest x-ray unremarkable. In the ER she was given fluid bolus and Rocephin 2 g IV. Home Medications ?Medication ?Instructions ?Recorded ?Confirmed ?Type blood sugar diagnostic (Blood #50 ea 06/04/23 02/27/25 Rx Glucose Test strips) blood-glucose meter #1 ea 06/04/23 02/27/25 Rx lancets #100 ea 06/04/23 02/27/25 Rx prevagen vitamin PO 06/04/23 02/24/25 History ferrous gluconate 324 mg (38 mg 324 mg PO DAILY #90 tabs 06/17/24 02/27/25 Rx iron) tablet atorvastatin 20 mg tablet 20 mg PO DAILY #28 tabs 10/14/24 02/27/25 Rx metformin 500 mg tablet,extended 500 mg PO BID #56 tabs 10/14/24 02/27/25 Rx release 24 hr tamsulosin 0.4 mg capsule 0.4 mg PO ONCE PM #28 caps 10/14/24 02/27/25 Rx albuterol sulfate 90 mcg/actuation 2 puff PO Q6H PRN shortness of 12/27/24 02/27/25 Rx aerosol inhaler breath or wheezing #8.5 grams lisinopril 20 mg tablet 20 mg PO DAILY #90 tabs 01/06/25 02/27/25 Rx lisinopril 20 0.5 tab PO DAILY for blood 01/09/25 02/27/25 Rx mg-hydrochlorothiazide 12.5 mg pressure #14 tabs tablet quetiapine 25 mg tablet 12.5 mg (1/2 x 25 mg) PO QPM #14 01/09/25 02/27/25 Rx tabs acetaminophen 325 mg capsule 650 mg PO Q6H PRN pain 02/24/25 02/27/25 History buspirone 15 mg tablet 7.5 mg PO BID 02/24/25 02/27/25 History hydroxyzine HCl 25 mg tablet 25 mg PO Q6H PRN anxiety 02/24/25 02/27/25 History insulin glargine 100 unit/mL (3 8 unit (0.08 mL) SUBCUT QPM #3 mL 02/24/25 02/27/25 Rx mL) subcutaneous pen (Lantus Solostar U-100 Insulin) phenazopyridine 200 mg tablet 200 mg PO Q6H PRN bladder spasms 02/24/25 02/27/25 History (Pyridium) ketoconazole 2 % topical cream 1 applic topical BID #60 grams 02/27/25 02/27/25 Rx sulfamethoxazole 800 1 tab PO BID #30 tabs 02/27/25 02/27/25 Rx mg-trimethoprim 160 mg tablet (Bactrim DS) wheelchair #1 ea 02/27/25 02/27/25 Rx Imaging: US ABDOMEN LIMITED Liver: Liver is normal in size and homogeneous in echotexture. Gallbladder: Multiple shadowing echogenic gallstones are present. Gallbladder wall is thickened, measuring 9 mm in thickness. Trace pericholecystic fluid. Sonographic Ch sign is negative. Biliary ducts: Intrahepatic bile ducts are non-dilated. Extrahepatic bile duct caliber measures 8.7 mm. Normal is 6-7 mm or less in diameter, or 10 mm or less post-cholecystectomy. Pancreas: Not well visualized due to overlying bowel gas. Miscellaneous: No free abdominal fluid. IMPRESSION: 1. Cholelithiasis with gallbladder wall thickening and mild pericholecystic fluid. Sonographic Ch sign is negative. Findings are suspicious for acute cholecystitis, and correlation with clinical and laboratory findings is recommended. 2. Common bile duct is borderline enlarged for age at 8.7 mm. No filling defect is seen. MRCP or ERCP could be performed if there is clinical concern for biliary obstruction. XR FOOT RT 2V Bones: Postsurgical changes from interval resection of the 1st proximal phalangeal base. Prior resection of the 2nd ray at the level of the proximal phalangeal neck. Generalized bony demineralization. Degenerative changes throughout the midfoot. Mild widening of the 1st intermetatarsal distance does not appear significantly changed. Posterior and plantar calcaneal enthesophytes. Soft tissues: Soft tissue edema is present in the forefoot. IMPRESSION: 1. Interval postsurgical changes from resection of the 1st proximal phalangeal base. Stable postsurgical changes to the 2nd ray. 2. Nonspecific soft tissue edema. No definite radiographic signs of osteomyelitis. MRI could be performed for further evaluation if there is continued clinical concern. Assessment & Plan Sepsis due to UTI -Blood culture pending, urine culture Gram-negative rods -ceftriaxone -Monitor for urine retention, check post void residuals. - IV fluids -Symptomatic treatment with Tylenol for fever, pain medications and antiemetics as needed Elevated LFT. Presented with LFT abnormality - AST 2085, ALT 1030, total bilirubin 1.7, lipase 160. Unclear etiology. -follow-up LFT continues to rise, with AST 2400 and ALT 2128 on 02/28. -check for hepatitis A, B, C, EBV, CMV -not currently on statin, only new medicine was low-dose Seroquel. -Abdominal ultrasound shows normal-appearing liver, cholelithiasis and possible cholecystitis? -trend, daily CMP -consult General surgery, consider transfer for GI consultation if cholecystitis ruled out. Diabetes mellitus, type II with long-term current use of insulin, uncontrolled with hyperglycemia, -check HbA1c. -Continue to monitor blood sugar. -Hold metformin during the hospital stay -Continue diabetic diet with sliding scale insulins with NovoLog sliding scale. -hypoglycemia protocol as needed Hyperlipidemia. Atorvastatin was not continued on admission. COPD. Restart buspirone and albuterol as needed. Hypertension. Restart lisinopril and hydrochlorothiazide. BPH. Restart Flomax. Enoxaparin for DVT prevention Due to his dementia, his daughter is his decision maker. Exam Vital Signs (past 8 hours): - 02/28/25 01:53 Temperature 98.9 F Oxygen Delivery Method Room Air Oxygen Flow Rate 0 Narrative Exam Narrative: Alert and oriented only to name. He is very soft-spoken and allows his daughter to speak for him. He appears to be somewhat hard of hearing. Heart is regular rate and rhythm without murmur. Lungs are clear to auscultation bilaterally. Abdomen is soft, bowel sounds positive, no liver enlargement. Nontender. There is no ankle edema. He does have partial amputations of both sides toe 2 and the right side toe 3 has a red spot on the lateral plantar aspect. Objective Imaging Right Foot Xray: Radiologist's impression: PROCEDURE: XR FOOT RT 2V INDICATIONS: Toe Osteomyelitis TECHNIQUE: 2 views of the foot were acquired. COMPARISON: [facility], , XR FOOT RT MIN 3V, 01/04/2025, 11:33. FINDINGS: Bones: Postsurgical changes from interval resection of the 1st proximal phalangeal base. Prior resection of the 2nd ray at the level of the proximal phalangeal neck. Generalized bony demineralization. Degenerative changes throughout the midfoot. Mild widening of the 1st intermetatarsal distance does not appear significantly changed. Posterior and plantar calcaneal enthesophytes. Soft tissues: Soft tissue edema is present in the forefoot. IMPRESSION: 1. Interval postsurgical changes from resection of the 1st proximal phalangeal base. Stable postsurgical changes to the 2nd ray. 2. Nonspecific soft tissue edema. No definite radiographic signs of osteomyelitis. MRI could be performed for further evaluation if there is continued clinical concern. Labs 02/28/25 04:35 02/28/25 04:35 Labs: Laboratory Results - last 24 hr 02/27/25 02/27/25 02/27/25 17:05 17:13 19:06 WBC 8.5 RBC 3.54 L Hgb 11.5 L Hct 33.3 L MCV 94.1 MCH 32.4 MCHC 34.4 RDW 15.6 H Plt Count 234 Neut % (Auto) 88.5 H Lymph % (Auto) 8.0 L Rich % (Auto) 3.0 Eos % (Auto) 0.2 L Baso % (Auto) 0.3 Neut # (Auto) 7500 H Lymph # (Auto) 700 L Rich # (Auto) 300 Eos # (Auto) 0 Baso # (Auto) 0 PT 11.4 INR 1.0 APTT 27 Sodium 139 Potassium 4.0 Chloride 102 Carbon Dioxide 28 BUN 23 H Creatinine 0.93 Estimated GFR > 60 BUN/Creatinine Ratio 24.7 H Glucose 220 H POC Whole Bld Glucose Lactate 2.4 H 2.1 Calcium 9.7 Total Bilirubin 1.7 H AST 2085 H ALT 1030 H Alkaline Phosphatase 1173 H Total Protein 7.7 Albumin 4.2 Globulin 3.5 Albumin/Globulin Ratio 1.2 Lipase 160 Procalcitonin 0.127 Urine Color Yellow Urine Appearance Sl cloudy Urine pH 5.5 Ur Specific [place] 1.020 Urine Protein 1+ H Urine Glucose (UA) Negative Urine Ketones Trace H Urine Occult Blood Trace-intact Urine Nitrate Positive H Urine Bilirubin Negative Urine Urobilinogen 4.0 H Ur Leukocyte Esterase 1+ H Urine RBC 0-1/hpf Urine WBC 5-10/hpf H Ur Squamous Epith Cells 1-5 /hpf Urine Bacteria Many (>30) H Ur Culture Indicated? Specimen cultured Vol Urine Centrifuged 10ml (spun) A.calcoaceticus-baumannii cmplx PCR Bacteroides fragilis Iqra albicans (PCR) Iqra auris (PCR) C. glabrata (PCR) C. krusei (PCR) C. parapsilosis (PCR) C. tropicalis (PCR) C. neoform/gattii (PCR) Enterobacterales (PCR) E. cloacae complex PCR Enterococc faecalis PCR Enterococc faecium PCR E. coli (PCR) H. influenzae (PCR) Klebsiella aerogenes (PCR) Klebsiella oxytoca PCR Klebsiella pneumoniae List. monocytogenes PCR N. meningitidis (PCR) Proteus species (PCR) Salmonella spp. (PCR) Serratia marcescens PCR Staphylococcus sp PCR Staph aureus (PCR) mecA/C & MREJ Resist Gene mecA/C-Methicil Resis Gene mcr-1 Colistin Res Gene PCR Staph epidermidis (PCR) Staph lugdunensis PCR S. maltophilia (PCR) Streptococcus sp PCR Group A Strep (PCR) Strep agalactiae (PCR) Strep pneumoniae (PCR) P. aeruginosa (PCR) Ewa/B-Vanco Res Genes blaIMP Car res Gene PCR KPC-Carbap Res Gene PCR blaNDM Car Res Gene PCR OXA-48 Carbapenem Resis Gene (PCR) blaVIM Car Res Gene PCR CTX-M Gene Resistance (PCR) 02/27/25 02/28/25 02/28/25 20:56 04:35 07:53 WBC 10.5 RBC 3.20 L Hgb 9.9 L Hct 29.5 L MCV 92.4 MCH 30.9 MCHC 33.5 RDW 15.4 H Plt Count 184 Neut % (Auto) 85.9 H Lymph % (Auto) 6.6 L Rich % (Auto) 6.6 Eos % (Auto) 0.7 L Baso % (Auto) 0.2 Neut # (Auto) 9000 H Lymph # (Auto) 700 L Rich # (Auto) 700 Eos # (Auto) 100 Baso # (Auto) 0 PT INR APTT Sodium 137 Potassium 3.7 Chloride 105 Carbon Dioxide 28 BUN 18 Creatinine 0.81 Estimated GFR > 60 BUN/Creatinine Ratio 22.2 H Glucose 195 H POC Whole Bld Glucose 159 H 162 H Lactate Calcium 8.4 Total Bilirubin 1.9 H AST 2400 H ALT 2128 H Alkaline Phosphatase 903 H Total Protein 6.1 L Albumin 3.3 L Globulin 2.8 Albumin/Globulin Ratio 1.2 Lipase Procalcitonin Urine Color Urine Appearance Urine pH Ur Specific [place] Urine Protein Urine Glucose (UA) Urine Ketones Urine Occult Blood Urine Nitrate Urine Bilirubin Urine Urobilinogen Ur Leukocyte Esterase Urine RBC Urine WBC Ur Squamous Epith Cells Urine Bacteria Ur Culture Indicated? Vol Urine Centrifuged A.calcoaceticus-baumannii cmplx PCR Bacteroides fragilis Iqra albicans (PCR) Iqra auris (PCR) C. glabrata (PCR) C. krusei (PCR) C. parapsilosis (PCR) C. tropicalis (PCR) C. neoform/gattii (PCR) Enterobacterales (PCR) E. cloacae complex PCR Enterococc faecalis PCR Enterococc faecium PCR E. coli (PCR) H. influenzae (PCR) Klebsiella aerogenes (PCR) Klebsiella oxytoca PCR Klebsiella pneumoniae List. monocytogenes PCR N. meningitidis (PCR) Proteus species (PCR) Salmonella spp. (PCR) Serratia marcescens PCR Staphylococcus sp PCR Staph aureus (PCR) mecA/C & MREJ Resist Gene mecA/C-Methicil Resis Gene mcr-1 Colistin Res Gene PCR Staph epidermidis (PCR) Staph lugdunensis PCR S. maltophilia (PCR) Streptococcus sp PCR Group A Strep (PCR) Strep agalactiae (PCR) Strep pneumoniae (PCR) P. aeruginosa (PCR) Ewa/B-Vanco Res Genes blaIMP Car res Gene PCR KPC-Carbap Res Gene PCR blaNDM Car Res Gene PCR OXA-48 Carbapenem Resis Gene (PCR) blaVIM Car Res Gene PCR CTX-M Gene Resistance (PCR) 02/28/25 17:05 WBC RBC Hgb Hct MCV MCH MCHC RDW Plt Count Neut % (Auto) Lymph % (Auto) Rich % (Auto) Eos % (Auto) Baso % (Auto) Neut # (Auto) Lymph # (Auto) Rich # (Auto) Eos # (Auto) Baso # (Auto) PT INR APTT Sodium Potassium Chloride Carbon Dioxide BUN Creatinine Estimated GFR BUN/Creatinine Ratio Glucose POC Whole Bld Glucose Lactate Calcium Total Bilirubin AST ALT Alkaline Phosphatase Total Protein Albumin Globulin Albumin/Globulin Ratio Lipase Procalcitonin Urine Color Urine Appearance Urine pH Ur Specific [place] Urine Protein Urine Glucose (UA) Urine Ketones Urine Occult Blood Urine Nitrate Urine Bilirubin Urine Urobilinogen Ur Leukocyte Esterase Urine RBC Urine WBC Ur Squamous Epith Cells Urine Bacteria Ur Culture Indicated? Vol Urine Centrifuged A.calcoaceticus-baumannii cmplx PCR Not detected Bacteroides fragilis Not detected Iqra albicans (PCR) Not detected Iqra auris (PCR) Not detected C. glabrata (PCR) Not detected C. krusei (PCR) Not detected C. parapsilosis (PCR) Not detected C. tropicalis (PCR) Not detected C. neoform/gattii (PCR) Not detected Enterobacterales (PCR) Detected E. cloacae complex PCR Not detected Enterococc faecalis PCR Not detected Enterococc faecium PCR Not detected E. coli (PCR) Detected H. influenzae (PCR) Not detected Klebsiella aerogenes (PCR) Not detected Klebsiella oxytoca PCR Not detected Klebsiella pneumoniae Not detected List. monocytogenes PCR Not detected N. meningitidis (PCR) Not detected Proteus species (PCR) Not detected Salmonella spp. (PCR) Not detected Serratia marcescens PCR Not detected Staphylococcus sp PCR Not detected Staph aureus (PCR) Not detected mecA/C & MREJ Resist Gene Not applicable mecA/C-Methicil Resis Gene Not applicable mcr-1 Colistin Res Gene PCR Not detected Staph epidermidis (PCR) Not detected Staph lugdunensis PCR Not detected S. maltophilia (PCR) Not detected Streptococcus sp PCR Not detected Group A Strep (PCR) Not detected Strep agalactiae (PCR) Not detected Strep pneumoniae (PCR) Not detected P. aeruginosa (PCR) Not detected Ewa/B-Vanco Res Genes Not applicable blaIMP Car res Gene PCR Not detected KPC-Carbap Res Gene PCR Not detected blaNDM Car Res Gene PCR Not detected OXA-48 Carbapenem Resis Gene (PCR) Not detected blaVIM Car Res Gene PCR Not detected CTX-M Gene Resistance (PCR) Not detected PFSH Medical History UTI (urinary tract infection) Preoperative clearance Allergic conjunctivitis BPH (benign prostatic hyperplasia) Anemia Hypertension Type 2 diabetes mellitus History of alcoholism History of tobacco abuse Dementia Hyperlipidemia Surgical History History of amputation of toe Social History household members: none Smoking Status: Former smoker Assessment & Plan Time-Based Coding :: [TOTAL MINUTES] spent with patient and on the chart (including review of chart, obtaining history, exam, reviewing outside data, placing orders, documenting exam and treatment plan, and counseling patient) on [DATE]. Quality VTE Deep Vein Thrombosis/Pulmonary Embolism Present on Admission: No
--- NOTE | 2025-02-28 09:00 | DI.US.S_ITS ---
PROCEDURE: US ABDOMEN LIMITED INDICATIONS: ELEVATED LIVER FUNCTION TESTS TECHNIQUE: Real-time scanning was performed of the abdominal and retroperitoneal organs, with image documentation. COMPARISON: None. FINDINGS: Liver: Liver is normal in size and homogeneous in echotexture. Gallbladder: Multiple shadowing echogenic gallstones are present. Gallbladder wall is thickened, measuring 9 mm in thickness. Trace pericholecystic fluid. Sonographic Ch sign is negative. Biliary ducts: Intrahepatic bile ducts are non-dilated. Extrahepatic bile duct caliber measures 8.7 mm. Normal is 6-7 mm or less in diameter, or 10 mm or less post-cholecystectomy. Pancreas: Not well visualized due to overlying bowel gas. Miscellaneous: No free abdominal fluid. IMPRESSION: 1. Cholelithiasis with gallbladder wall thickening and mild pericholecystic fluid. Sonographic Ch sign is negative. Findings are suspicious for acute cholecystitis, and correlation with clinical and laboratory findings is recommended. 2. Common bile duct is borderline enlarged for age at 8.7 mm. No filling defect is seen. MRCP or ERCP could be performed if there is clinical concern for biliary obstruction. Approved by: John Salgado M.D. on 02/28/2025 at 8:50
[2025-02-28 09:29] VITALS: BP 151/90
[2025-02-28] MEDS: ENOXAPARIN 40 MG/0.4 ML SYRINGE SUBCUT (09:31)
[2025-02-28 09:32] VITALS: BP 151/90; PULSE 60; RESP 15; TEMP 36.7; O2SAT 98
--- NOTE | 2025-02-28 12:14 | DI.RAD.S_ITS ---
PROCEDURE: XR FOOT RT 2V INDICATIONS: Toe Osteomyelitis TECHNIQUE: 2 views of the foot were acquired. COMPARISON: [facility], CR, XR FOOT RT MIN 3V, 01/04/2025, 11:33. FINDINGS: Bones: Postsurgical changes from interval resection of the 1st proximal phalangeal base. Prior resection of the 2nd ray at the level of the proximal phalangeal neck. Generalized bony demineralization. Degenerative changes throughout the midfoot. Mild widening of the 1st intermetatarsal distance does not appear significantly changed. Posterior and plantar calcaneal enthesophytes. Soft tissues: Soft tissue edema is present in the forefoot. IMPRESSION: 1. Interval postsurgical changes from resection of the 1st proximal phalangeal base. Stable postsurgical changes to the 2nd ray. 2. Nonspecific soft tissue edema. No definite radiographic signs of osteomyelitis. MRI could be performed for further evaluation if there is continued clinical concern. Approved by: John Salgado M.D. on 02/28/2025 at 12:51
[2025-02-28] MEDS: NYSTATIN POWDER 15GM 1 APPLIC TOP (14:34)
[2025-02-28 15:26] LABS: Hemoglobin A1C% w Est Avg Glu 6.9 % (4.0-6.0)
[2025-02-28 16:00] LABS: Acetaminophen < 10 ug/mL (10-30); Creatine Kinase 74 U/L (55-170); Gamma Glutamyl Transpeptidase 337 U/L (15-73)
--- NOTE | 2025-02-28 16:37 | PM.CN.IH.1 ---
History of Present Illness Consult details Date Patient Seen: 02/28/25 Time Patient Seen: 16:37 Chief complaint: shivering, stomach pain, dementia Reason for consult: elevated liver enzymes with hyperbilirubinemia Narrative: Asked per the hospitalist to evaluate this 79-year-old gentleman, admitted last p.m. via the emergency room, with complaints of abdominal pain, rigors, and elevated hepatic enzymes. The patient suffers from significant dementia and resides in a memory care facility. His daughter is at the bedside and is providing all of the history. The patient was recently in a detention facility for 1 month following a right toe amputation. According to the daughter, while transferring the patient from the detention facility to the memory care facility yesterday, the patient reported epigastric and right upper quadrant discomfort and fatigue. His daughter also noted that he appeared extraordinarily pale and was uncomfortable. She states while they were at the pharmacy obtaining medication for a UTI diagnosed by his PCP, the patient had a severe case of rigors. She proceeded immediately to the emergency room. On evaluation, the patient was noted to have elevations in his transaminases, bilirubin, and alkaline phosphatase. An ultrasound of the gallbladder revealed mild thickness of the wall with cholelithiasis. When asked, the patient reports he does not have abdominal pain, however, on exam he frowns significantly with palpation of the upper abdomen. The patient does have a history of ethanol consumption, however, has not had ethanol in 20 years. At this time he is resting quietly in bed. His daughter denies him having had additional abdominal discomfort, nausea, vomiting, diarrhea, constipation, melena, or hematochezia. She does not note significant recent weight loss. She notes he does not have a cardiac history or hypertension, but is diabetic. He does indicate discomfort in the perineal region and states he feels he has a rash there. Meds Home Medications and Allergies Home Medications ?Medication ?Instructions ?Recorded ?Confirmed ?Type blood sugar diagnostic (Blood #50 ea 06/04/23 02/27/25 Rx Glucose Test strips) blood-glucose meter #1 ea 06/04/23 02/27/25 Rx lancets #100 ea 06/04/23 02/27/25 Rx prevagen vitamin 1 tab PO 06/04/23 02/24/25 History ferrous gluconate 324 mg (38 mg 324 mg PO DAILY #90 tabs 06/17/24 02/27/25 Rx iron) tablet atorvastatin 20 mg tablet 20 mg PO DAILY #28 tabs 10/14/24 02/27/25 Rx metformin 500 mg tablet,extended 500 mg PO BID #56 tabs 10/14/24 02/27/25 Rx release 24 hr tamsulosin 0.4 mg capsule 0.4 mg PO ONCE PM #28 caps 10/14/24 02/27/25 Rx albuterol sulfate 90 mcg/actuation 2 puff PO Q6H PRN shortness of 12/27/24 02/27/25 Rx aerosol inhaler breath or wheezing #8.5 grams lisinopril 20 mg tablet 20 mg PO DAILY #90 tabs 01/06/25 02/27/25 Rx lisinopril 20 0.5 tab PO DAILY for blood 01/09/25 02/27/25 Rx mg-hydrochlorothiazide 12.5 mg pressure #14 tabs tablet quetiapine 25 mg tablet 12.5 mg (1/2 x 25 mg) PO QPM #14 01/09/25 02/27/25 Rx tabs acetaminophen 325 mg capsule 650 mg PO Q6H PRN pain 02/24/25 02/27/25 History buspirone 15 mg tablet 7.5 mg PO BID 02/24/25 02/27/25 History hydroxyzine HCl 25 mg tablet 25 mg PO Q6H PRN anxiety 02/24/25 02/27/25 History insulin glargine 100 unit/mL (3 8 unit (0.08 mL) SUBCUT QPM #3 mL 02/24/25 02/27/25 Rx mL) subcutaneous pen (Lantus Solostar U-100 Insulin) phenazopyridine 200 mg tablet 200 mg PO Q6H PRN bladder spasms 02/24/25 02/27/25 History (Pyridium) ketoconazole 2 % topical cream 1 applic topical BID #60 grams 02/27/25 02/27/25 Rx sulfamethoxazole 800 1 tab PO BID #30 tabs 02/27/25 02/27/25 Rx mg-trimethoprim 160 mg tablet (Bactrim DS) wheelchair #1 ea 02/27/25 02/27/25 Rx Allergies Allergy/AdvReac Type Severity Reaction Status Date / Time No Known Drug Allergies Allergy Verified 02/27/25 16:59 Review of Systems Review of Systems Narrative: The patient is unable to supply of review of systems secondary to dementia Exam Vital Signs (past 8 hours): - 02/28/25 09:29 02/28/25 09:32 Temperature 98.0 F Pulse Rate 60 Respiratory Rate 15 Blood Pressure 151/90 H 151/90 H Pulse Oximetry 98 Oxygen Flow Rate 0 Oxygen Delivery Method Room Air Oxygen Flow Rate 0 Narrative Exam Narrative: AVSS Alert, but not oriented to place, time or situation Regular rate and rhythm without murmur Normal chest wall excursion bilaterally; no wheezes, rales, or rhonchi appreciated Moderate discomfort noted to right upper quadrant on deep palpation, however, no peritoneal signs such as guarding; bowel sounds x4 quadrants; nondistended Exam of the perineal region revealed early monilial infestation, but no other abnormality Rectal deferred Moves all extremities x4; evaluation of recently amputated toe shows nice healing without erythema Objective Labs 02/28/25 04:35 02/28/25 04:35 Labs: Laboratory Results - last 24 hr 02/27/25 02/27/25 02/27/25 17:05 17:13 19:06 WBC 8.5 RBC 3.54 L Hgb 11.5 L Hct 33.3 L MCV 94.1 MCH 32.4 MCHC 34.4 RDW 15.6 H Plt Count 234 Neut % (Auto) 88.5 H Lymph % (Auto) 8.0 L [place] % (Auto) 3.0 Eos % (Auto) 0.2 L Baso % (Auto) 0.3 Neut # (Auto) 7500 H Lymph # (Auto) 700 L [place] # (Auto) 300 Eos # (Auto) 0 Baso # (Auto) 0 PT 11.4 INR 1.0 APTT 27 Sodium 139 Potassium 4.0 Chloride 102 Carbon Dioxide 28 BUN 23 H Creatinine 0.93 Estimated GFR > 60 BUN/Creatinine Ratio 24.7 H Glucose 220 H POC Whole Bld Glucose Hemoglobin A1c Lactate 2.4 H 2.1 Calcium 9.7 Total Bilirubin 1.7 H GGT AST 2085 H ALT 1030 H Alkaline Phosphatase 1173 H Lactate Dehydrogenase Total Creatine Kinase Total Protein 7.7 Albumin 4.2 Globulin 3.5 Albumin/Globulin Ratio 1.2 Lipase 160 Procalcitonin 0.127 Urine Color Yellow Urine Appearance Sl cloudy Urine pH 5.5 Ur Specific [place] 1.020 Urine Protein 1+ H Urine Glucose (UA) Negative Urine Ketones Trace H Urine Occult Blood Trace-intact Urine Nitrate Positive H Urine Bilirubin Negative Urine Urobilinogen 4.0 H Ur Leukocyte Esterase 1+ H Urine RBC 0-1/hpf Urine WBC 5-10/hpf H Ur Squamous Epith Cells 1-5 /hpf Urine Bacteria Many (>30) H Ur Culture Indicated? Specimen cultured Vol Urine Centrifuged 10ml (spun) Acetaminophen A.calcoaceticus-baumannii cmplx PCR Bacteroides fragilis Iqra albicans (PCR) Iqra auris (PCR) C. glabrata (PCR) C. krusei (PCR) C. parapsilosis (PCR) C. tropicalis (PCR) C. neoform/gattii (PCR) Enterobacterales (PCR) E. cloacae complex PCR Enterococc faecalis PCR Enterococc faecium PCR E. coli (PCR) H. influenzae (PCR) Klebsiella aerogenes (PCR) Klebsiella oxytoca PCR Klebsiella pneumoniae List. monocytogenes PCR N. meningitidis (PCR) Proteus species (PCR) Salmonella spp. (PCR) Serratia marcescens PCR Staphylococcus sp PCR Staph aureus (PCR) mecA/C & MREJ Resist Gene mecA/C-Methicil Resis Gene mcr-1 Colistin Res Gene PCR Staph epidermidis (PCR) Staph lugdunensis PCR S. maltophilia (PCR) Streptococcus sp PCR Group A Strep (PCR) Strep agalactiae (PCR) Strep pneumoniae (PCR) P. aeruginosa (PCR) Ewa/B-Vanco Res Genes blaIMP Car res Gene PCR KPC-Carbap Res Gene PCR blaNDM Car Res Gene PCR OXA-48 Carbapenem Resis Gene (PCR) blaVIM Car Res Gene PCR CTX-M Gene Resistance (PCR) 02/27/25 02/28/25 02/28/25 20:56 04:35 07:53 WBC 10.5 RBC 3.20 L Hgb 9.9 L Hct 29.5 L MCV 92.4 MCH 30.9 MCHC 33.5 RDW 15.4 H Plt Count 184 Neut % (Auto) 85.9 H Lymph % (Auto) 6.6 L [place] % (Auto) 6.6 Eos % (Auto) 0.7 L Baso % (Auto) 0.2 Neut # (Auto) 9000 H Lymph # (Auto) 700 L [place] # (Auto) 700 Eos # (Auto) 100 Baso # (Auto) 0 PT INR APTT Sodium 137 Potassium 3.7 Chloride 105 Carbon Dioxide 28 BUN 18 Creatinine 0.81 Estimated GFR > 60 BUN/Creatinine Ratio 22.2 H Glucose 195 H POC Whole Bld Glucose 159 H 162 H Hemoglobin A1c 6.9 H Lactate Calcium 8.4 Total Bilirubin 1.9 H GGT AST 2400 H ALT 2128 H Alkaline Phosphatase 903 H Lactate Dehydrogenase Total Creatine Kinase Total Protein 6.1 L Albumin 3.3 L Globulin 2.8 Albumin/Globulin Ratio 1.2 Lipase Procalcitonin Urine Color Urine Appearance Urine pH Ur Specific [place] Urine Protein Urine Glucose (UA) Urine Ketones Urine Occult Blood Urine Nitrate Urine Bilirubin Urine Urobilinogen Ur Leukocyte Esterase Urine RBC Urine WBC Ur Squamous Epith Cells Urine Bacteria Ur Culture Indicated? Vol Urine Centrifuged Acetaminophen A.calcoaceticus-baumannii cmplx PCR Bacteroides fragilis Iqra albicans (PCR) Iqra auris (PCR) C. glabrata (PCR) C. krusei (PCR) C. parapsilosis (PCR) C. tropicalis (PCR) C. neoform/gattii (PCR) Enterobacterales (PCR) E. cloacae complex PCR Enterococc faecalis PCR Enterococc faecium PCR E. coli (PCR) H. influenzae (PCR) Klebsiella aerogenes (PCR) Klebsiella oxytoca PCR Klebsiella pneumoniae List. monocytogenes PCR N. meningitidis (PCR) Proteus species (PCR) Salmonella spp. (PCR) Serratia marcescens PCR Staphylococcus sp PCR Staph aureus (PCR) mecA/C & MREJ Resist Gene mecA/C-Methicil Resis Gene mcr-1 Colistin Res Gene PCR Staph epidermidis (PCR) Staph lugdunensis PCR S. maltophilia (PCR) Streptococcus sp PCR Group A Strep (PCR) Strep agalactiae (PCR) Strep pneumoniae (PCR) P. aeruginosa (PCR) Ewa/B-Vanco Res Genes blaIMP Car res Gene PCR KPC-Carbap Res Gene PCR blaNDM Car Res Gene PCR OXA-48 Carbapenem Resis Gene (PCR) blaVIM Car Res Gene PCR CTX-M Gene Resistance (PCR) 02/28/25 02/28/25 02/28/25 12:06 15:32 17:05 WBC RBC Hgb Hct MCV MCH MCHC RDW Plt Count Neut % (Auto) Lymph % (Auto) [place] % (Auto) Eos % (Auto) Baso % (Auto) Neut # (Auto) Lymph # (Auto) [place] # (Auto) Eos # (Auto) Baso # (Auto) PT INR APTT Sodium Potassium Chloride Carbon Dioxide BUN Creatinine Estimated GFR BUN/Creatinine Ratio Glucose POC Whole Bld Glucose 130 H Hemoglobin A1c Lactate Calcium Total Bilirubin GGT 337 H AST ALT Alkaline Phosphatase Lactate Dehydrogenase 660 H Total Creatine Kinase 74 Total Protein Albumin Globulin Albumin/Globulin Ratio Lipase Procalcitonin Urine Color Urine Appearance Urine pH Ur Specific [place] Urine Protein Urine Glucose (UA) Urine Ketones Urine Occult Blood Urine Nitrate Urine Bilirubin Urine Urobilinogen Ur Leukocyte Esterase Urine RBC Urine WBC Ur Squamous Epith Cells Urine Bacteria Ur Culture Indicated? Vol Urine Centrifuged Acetaminophen < 10 A.calcoaceticus-baumannii cmplx PCR Not detected Bacteroides fragilis Not detected Iqra albicans (PCR) Not detected Iqra auris (PCR) Not detected C. glabrata (PCR) Not detected C. krusei (PCR) Not detected C. parapsilosis (PCR) Not detected C. tropicalis (PCR) Not detected C. neoform/gattii (PCR) Not detected Enterobacterales (PCR) Detected E. cloacae complex PCR Not detected Enterococc faecalis PCR Not detected Enterococc faecium PCR Not detected E. coli (PCR) Detected H. influenzae (PCR) Not detected Klebsiella aerogenes (PCR) Not detected Klebsiella oxytoca PCR Not detected Klebsiella pneumoniae Not detected List. monocytogenes PCR Not detected N. meningitidis (PCR) Not detected Proteus species (PCR) Not detected Salmonella spp. (PCR) Not detected Serratia marcescens PCR Not detected Staphylococcus sp PCR Not detected Staph aureus (PCR) Not detected mecA/C & MREJ Resist Gene Not applicable mecA/C-Methicil Resis Gene Not applicable mcr-1 Colistin Res Gene PCR Not detected Staph epidermidis (PCR) Not detected Staph lugdunensis PCR Not detected S. maltophilia (PCR) Not detected Streptococcus sp PCR Not detected Group A Strep (PCR) Not detected Strep agalactiae (PCR) Not detected Strep pneumoniae (PCR) Not detected P. aeruginosa (PCR) Not detected Ewa/B-Vanco Res Genes Not applicable blaIMP Car res Gene PCR Not detected KPC-Carbap Res Gene PCR Not detected blaNDM Car Res Gene PCR Not detected OXA-48 Carbapenem Resis Gene (PCR) Not detected blaVIM Car Res Gene PCR Not detected CTX-M Gene Resistance (PCR) Not detected PFSH Medical History UTI (urinary tract infection) Preoperative clearance Allergic conjunctivitis BPH (benign prostatic hyperplasia) Anemia Hypertension Type 2 diabetes mellitus History of alcoholism History of tobacco abuse Dementia Hyperlipidemia Surgical History History of amputation of toe Social History household members: none Tobacco & Substance Use Smoking Status: Former smoker Assessment & Plan Assessment & Plan narrative: 79-year-old gentleman with continuing elevation of transaminases, hyperbilirubinemia, and right upper quadrant pain -concern regarding possible ascending cholangitis vs acute hepatitis (viral vs autoimmune vs drug induced), or decompensating cirrhosis. There is mild dilation of external common duct, but not internal common duct, therefore, biliary obstruction less likely. Would consider use of Zosyn en lieu of Rocephin to treat both potential ascending cholangitis and UTI. GGT, CPK, acetominophen level, and hepatitis panel added. Would recommend evaluation and treatment (biopsy?) at a tertiary center with available furniture removalist's assistant. Surgical intervention not recommended at this time. If determined that the gall bladder is at issue, drainage via percutaneous cholecystostomy tube is recommended. Time-Based Coding :: [TOTAL MINUTES] spent with patient and on the chart (including review of chart, obtaining history, exam, reviewing outside data, placing orders, documenting exam and treatment plan, and counseling patient) on [DATE]. PROFEE Charge Codes Inpatient or Observation consultation: 37374
--- NOTE | 2025-02-28 16:41 | CM.DANOTE ---
DCP Assessment Note: Pt is a 79yo male, resident of [place], is admitted for sepsis due to UTI. Pt has a hx of dementia. Pt is a resident at [facility] in [facility]. Pt's Primary Care Provider is Dr. Paul Walker and insurance is Medicare and Medicaid. Reviewed chart and discussed with multidisciplinary team pt's medical status and initial discharge needs. Per hospitalist, pt would benefit from continued IV fluids, IV abx and abdominal ultrasound. Possible transfer to higher level of care. DCP spoke with pt daughter, Marcelle. She reports that pt was just released from [facility] on 02/23 after a toe surgery. She reports pt typically utilizes a FWW or cane, she was in the process of obtaining a Rx for a wheelchair. Pt daughter reports pt is established with [facility] now. Plan: Anticipating transfer to higher level of care, CM team will follow closely for coordination of discharge plans. YUN Dalal Discharge Planning/Care Management CM Discharge Assessment Start: 02/27/25 20:43 Freq: Status: Active Protocol: Document 02/28/25 16:36 MW (Rec: 02/28/25 16:40 MW [id number]) Discharge Planning Assessment Assigned Discharge DEMAR Harrison Social Service Director Provider Dr. Paul Walker Insurance Medicaid,Medicare DPOA/Assigned Juan Luis Griffin Designee Name Contact Information [phone] Advance Directives? No History Provided By Family Member,Medical Record Has Patient been No admitted in last 30 days? Prior Living Assisted Living Arrangements Household Members none Facility Name [facility] Admitted From: Willing to Return to Yes Facility? Independent with ADL No 's Is patient alert and No oriented? Caregiver for No Another DME Already Rented / FWW / Walker,Cane Owned Review Status In Process Please Provide Date 02/28/25 Initial DC Assessment Was Performed Next Review Type Continued Stay Review
[2025-02-28] MEDS: PIPERACILLIN/TAZO 4.5 GM in SODIUM CHLORIDE 0.9% 100 ML IV (17:23)
[2025-02-28 17:25] LABS: Ferritin 1270 ng/mL (18-464)
[2025-02-28] MEDS: INSULIN LISPRO 100 UNIT/ML 3ML VIAL SUBCUT (17:30)
[2025-02-28 18:18] VITALS: BP 119/72; PULSE 67; RESP 20; TEMP 37.2; O2SAT 97
[2025-02-28] MEDS: TAMSULOSIN 0.4 MG CAPSULE PO (19:39)
[2025-02-28] MEDS: PIPERACILLIN/TAZO 3.375 GM in SODIUM CHLORIDE 0.9% 100 ML IV (21:05)
[2025-02-28] MEDS: INSULIN GLARGINE 100 UNIT/ML 3ML PEN 8 UNIT SUBCUT (21:05)
--- NOTE | 2025-02-28 22:20 | PC.NURSE ---
Patient discharged to [facility] transferred by EMS at 22:20. Daughter made aware by coordinator. All personal items taken by daughter.
[2025-02-28 23:36] LABS: Hepatitis A Antibody IgM Negative (Negative); Hepatitis B Core Antibody IgM Negative (Negative); Hepatitis C Antibody Non Reactive (Non Reactive)
[2025-03-02 03:36] LABS: Hepatitis A Antibody IgM Negative (Negative); Hepatitis B Core Antibody IgM Negative (Negative); Hepatitis C Antibody Non Reactive (Non Reactive)
[2025-03-02 09:36] LABS: EBV Virus IgG Ab 358.0 U/mL (0.0-17.9); EBV Virus IgM Ab < 36.0 U/mL (0.0-35.9)
== END 2025-02-28 22:20 | disposition short-term general hospital (02) | DRG 872 ==
LOC: ED 18:37 → AC 19:01
PROVIDERS: Internal Medicine; Admitting Provider Family Medicine; Emergency Provider Family Medicine; PCP Family Medicine; Referring Provider Family Medicine; Visit Provider Family Medicine
DX: A41.9 Sepsis, unspecified organism (principal); N39.0 Urinary tract infection, site not specified; K80.10 Calculus of gallbladder with chronic cholecystitis without obstruction; E11.65 Type 2 diabetes mellitus with hyperglycemia; F03.90 Unspecified dementia, unspecified severity, without behavioral disturbance, psychotic disturbance, mood disturbance, and anxiety; R79.89 Other specified abnormal findings of blood chemistry; E78.5 Hyperlipidemia, unspecified; J44.9 Chronic obstructive pulmonary disease, unspecified; I10 Essential (primary) hypertension; N40.0 Benign prostatic hyperplasia without lower urinary tract symptoms; E80.6 Other disorders of bilirubin metabolism; E11.42 Type 2 diabetes mellitus with diabetic polyneuropathy; B96.89 Other specified bacterial agents as the cause of diseases classified elsewhere; R10.11 Right upper quadrant pain; Z89.422 Acquired absence of other left toe(s); Z89.421 Acquired absence of other right toe(s); Z87.891 Personal history of nicotine dependence; Z79.4 Long term (current) use of insulin; Z79.84 Long term (current) use of oral hypoglycemic drugs
CPT/HCPCS: 36415; 71045; 73620; 76705; 80053; 80074; 80329; 81001; 82550; 82728; 82962; 82977; 83036; 83605; 83615; 83690; 84145; 85025; 85610; 85730; 86665; 87040; 87077; 87086; 87154; 87186; 87497; 93005; 96365; 96366; 99284; A9270; G0480; J0696; J1650; J1815; J2543; J7030; J7050; J7120

== ENCOUNTER → 2025-03-27 12:56 | Outpatient (CLI) | payer MEDICARE, OTHER, MEDICAID, SELFPAY ==
[2025-02-27 21:04] VITALS: BMI 23.0
--- NOTE | 2025-03-27 12:59 | DI.RAD.S_ITS ---
PROCEDURE: XR TOE RT MIN 2V INDICATIONS: RT 3rd toe poss infection TECHNIQUE: 3 views of the 3rd toe(s) acquired. COMPARISON: [facility], CR, XR FOOT RT 2V, 02/28/2025, 12:10. FINDINGS: Bones: No fractures or dislocations. Previous resection at the base of the 1st proximal phalanx. Prominent bunion. Status post amputation at the distal aspect of the right 2nd proximal phalanx. Possible subtle erosions noted at the 3rd distal phalanx tuft. Soft tissues: No radiopaque foreign bodies. Soft tissue swelling noted in the 3rd toe. Possible distal 3rd toe soft tissue defect. IMPRESSION: No acute fracture. Possible erosions of the 3rd distal phalanx tuft raises concerns for osteomyelitis. Soft tissue swelling. No radiopaque foreign bodies or subcutaneous emphysema. Dictated by: Feli Lane M.D. on 03/28/2025 at 9:50 Approved by: Feli Lane M.D. on 03/28/2025 at 9:53
[2025-03-27 13:49] LABS: Add Manual Diff / Slide Review NO; Hematocrit 34.7 % (41-53); Hemoglobin 12.0 g/dL (13.5-17.5); Lymphocytes Absolute Auto 1500 /uL (1100-4500); Mean Corpuscular HGB Conc 34.6 % (30-36); Mean Corpuscular Hemoglobin 32.5 PG (26-34); Mean Corpuscular Volume 94.0 fL (80-100); Platelet Count 198 X10^3/uL (150-400)
[2025-03-27 13:56] LABS: Hemoglobin A1C% w Est Avg Glu 6.4 % (4.0-6.0)
[2025-03-27 14:00] LABS: HEMOLYSIS < 15 (0-50); Iron 148 ug/dL (49-181)
[2025-03-27 14:01] LABS: Alanine Aminotransferase 38 IU/L (<50); Albumin 4.1 g/dL (3.5-5.0); Albumin Globulin Ratio 1.6 (1.0-2.8); Alkaline Phosphatase 129 U/L (38-126); Blood Urea Nitrogen 19 mg/dL (9-20); Calcium 9.8 mg/dL (8.4-10.2); Carbon Dioxide 27 mmol/L (22-32); Chloride 105 mmol/L (98-107); Estimated Glomerular Filt Rate > 60 mL/min (>60); Globulin 2.6 g/dL (1.7-4.1); Glucose 143 mg/dL (70-99); HEMOLYSIS < 15 (0-50); Potassium 4.2 mmol/L (3.4-5.1); Sodium 140 mmol/L (137-145); Total Protein 6.7 g/dL (6.3-8.2)
[2025-03-27 14:11] LABS: Percent Iron Saturation 46 % (20-50); Total Iron Binding Capacity 325 ug/dL (261-462); Transferrin 274 mg/dL (206-381)
[2025-03-27 14:31] LABS: TSH w/ Reflex to FT4 0.38 uIU/mL (0.47-4.68)
[2025-03-27 14:50] LABS: Vitamin B12 774 pg/mL (239-931)
[2025-03-27 20:55] LABS: Free T4, Direct Thyroxine 1.07 ng/dL (0.78-2.19)
== END ==
PROVIDERS: PCP Family Medicine; Referring Provider Family Medicine; Visit Provider Podiatrist Foot & Ankle Surgery
DX: L97.512 Non-pressure chronic ulcer of other part of right foot with fat layer exposed (principal); E11.59 Type 2 diabetes mellitus with other circulatory complications; N30.00 Acute cystitis without hematuria; N40.1 Benign prostatic hyperplasia with lower urinary tract symptoms; R35.1 Nocturia; I10 Essential (primary) hypertension; D50.8 Other iron deficiency anemias
CPT/HCPCS: 36415; 73660; 80053; 82607; 83036; 83540; 83550; 84439; 84443; 85025